=== PATIENT | male | born 1950 | race Caucasian/White ===

== ENCOUNTER → 2017-06-12 | Outpatient (CLI) | payer MEDICARE ==
--- NOTE | 2017-06-12 11:31 | CT ---
EXAMINATION TYPE: CT chest wo con DATE OF EXAM: 06/12/2017 COMPARISON: NONE, abnormal chest x-ray is unavailable at this location. HISTORY: Abn CXR, left lower lobe pneumonia CT DLP: 612.3 mGycm, Automated exposure control for dose reduction was used. CONTRAST: Performed injected with 0 mL of Omnipaque 350. TECHNIQUE: Axial images were obtained at 5 mm thick sections. Reconstructed images are reviewed on t [employer] computer in the coronal plane. FINDINGS: There is beam hardening artifact from a right shoulder prosthesis in the upper portion of t he study. There is herniation of abdominal contents including the stomach and loops of bowel into the posterio r left lung base this may be a morganii hernia. Some minimal infiltrate is along the left lower lobe adjacent to the hernia. Atelectasis or pneumonia could be considered within the left lower lobe. No enlarged mediastinal or hilar adenopathy is evident. The ascending aorta diameter at the level o f the main pulmonary artery is 3.9 cm. The main pulmonary artery diameter at the bifurcation is 3.[address] sections are obtained through the upper abdomen. Abdomen is essentially unremarkable. IMPRESSIONS: 1. Mild infiltrate with air bronchograms in the left lower lobe adjacent to the morganii hernia. Atel ectasis and pneumonia should be considered.
== END | disposition home or self-care (01) ==
LOC: RADCTMAIN 10:55
PROVIDERS: ATTEND Family Medicine
DX: J98.11 Atelectasis (principal); J18.9 Pneumonia, unspecified organism; R91.8 Other nonspecific abnormal finding of lung field; Z88.8 Allergy status to other drugs, medicaments and biological substances
CPT/HCPCS: 71250

== ENCOUNTER → 2017-10-09 | Outpatient (CLI) | payer MEDICARE ==
[2017-10-09 18:47] LABS: Alternaria alternata IgE <0.10 kU/L; Birch IgE <0.10 kU/L; Cat Epith & Dander IgE <0.10 kU/L; Clam IgE <0.10 kU/L; Cockroach IgE <0.10 kU/L; Codfish IgE <0.10 kU/L; Dermato. farinae IgE <0.10 kU/L; Dog Dander IgE <0.10 kU/L; Egg White IgE <0.10 kU/L; Elm IgE <0.10 kU/L; Immunoglobulin E 8.05 IU/mL (0.00-114.00); Immunoglobulin E 8.44 IU/mL (0.00-114.00); Maple (Box Elder) IgE <0.10 kU/L; Oak IgE <0.10 kU/L; Peanut IgE <0.10 kU/L; Ragweed,Common IgE <0.10 kU/L; Red Top (Bentgrass) IgE <0.10 kU/L; Scallop IgE <0.10 kU/L; Shrimp IgE <0.10 kU/L; Soybean IgE <0.10 kU/L; Walnut IgE (Food) <0.10 kU/L
== END ==
LOC: LABWHC1 10:10
PROVIDERS: ATTEND Family Medicine
DX: R05 Cough (principal); R53.83 Other fatigue; R06.02 Shortness of breath
CPT/HCPCS: 36415; 82785; 83880; 85379; 86003

== ENCOUNTER → 2017-10-15 | Outpatient (CLI) | payer MEDICARE ==
[2017-10-15 15:53] LABS: Blood Urea Nitrogen 25 mg/dL (9-20)
--- NOTE | 2017-10-15 16:33 | CT ---
EXAMINATION TYPE: CT chest w con DATE OF EXAM: 10/15/2017 COMPARISON: 06/12/2017 HISTORY: 66-year-old male SOB, fatigue and cough x1 month. TECHNIQUE: Contiguous axial scanning of the chest after the administration of 100ml mL of Isovue M300 . Coronal/sagittal reconstructions performed. CT DLP: 913mGycm. Automatic exposure control utilized for a dose reduction. FINDINGS: Heart normal size without pericardial effusion. Mild coronary vessel calcifications are present. Aorta normal caliber with mild atherosclerotic arch calcifications and conventional arch vessel branc wiliam anatomy. No thoracic lymphadenopathy. There is mass effect onto the posterior aspect of the heart secondary to a very large hernia which oc cupy occupies the left base. This contains the entire stomach, half the transverse colon, and splenic flexure. Persistent opacity with air bronchograms peripheral left base probably representing atelectasis given the left basilar volume loss and large hiatal hernia.. Partially visualized AAA. This measures up to at least 6.6 cm and vascular surgery referral is recomm ended. Bones: There is endplate spondylosis throughout the thoracic spine. Reverse right total shoulder comp elba tear demonstrated. Degenerative disc disease lower thoracic spine. No osseous destructive process . IMPRESSION: 1. Redemonstrated very large hiatal hernia containing the entire stomach, splenic flexure, and half t he transverse colon occupying the lower left hemithorax. There is mass effect onto the posterior aspe ct of the heart. 2. Continued peripheral left basilar opacity. This likely represents atelectasis given the left basil ar volume loss. Clinical correlation can be made for any underlying infectious infiltrate. 3. Partially visualized AAA measuring up to at least 6.6 cm. Vascular surgery referral recommended.
== END | disposition home or self-care (01) ==
LOC: RADCTMAIN 15:21
PROVIDERS: ATTEND Family Medicine
DX: R91.8 Other nonspecific abnormal finding of lung field (principal); R06.02 Shortness of breath
CPT/HCPCS: 82565; 84520; 71260; 36415; Q9967

== ENCOUNTER → 2017-10-28 | Outpatient (CLI) | payer MEDICARE ==
--- NOTE | 2017-10-28 14:35 | ECHOS ---
STRESS ECHOCARDIOGRAM DATE OF SERVICE: 10/28/2017 INDICATIONS: Shortness of breath MEDICATIONS: Losartan, amlodipine, hydralazine. BASELINE HEART RATE: 105 BASELINE BLOOD PRESSURE: 125/60 MAXIMUM HEART RATE: 137 MAXIMUM BLOOD PRESSURE: 177/92 85% MPHR: 129 100% MPHR: 152 METS: 5.4 MAXIMUM STAGE REACHED: 2 TOTAL EXERCISE TIME: 3:45 CLINICAL INFORMATION: Baseline rhythm is sinus mechanism, rate of 105, normal axis and intervals. Normal electrocardiogram. Baseline blood pressure 125/60 mmHg. Patient exercised on Simone protocol for 3 minutes 45 seconds reaching a peak rate of 137 beats per minute, which is equal to 90% maximum predicted heart rate. Peak blood pressure 177/92 mmHg. Test was terminated due to fatigue. There was no chest pain. Electrocardiographic monitoring revealed no evidence of diagnostic ischemic ST deviation. FINDINGS: Baseline echocardiogram revealed normal left ventricular function. At peak exercise, there was normal wall motion augmentation with no hypokinesis or dyskinesis. CONCLUSION: 1. Decreased exercise tolerance with normal electrocardiographic response to exercise and rare premature ventricular contractions. 2. Normal stress echocardiogram with no evidence of stress-induced ischemia. MMODL / IJN: [id number] /
== END | disposition home or self-care (01) ==
LOC: RADNMMAIN 08:58
PROVIDERS: ATTEND Family Medicine
DX: I49.3 Ventricular premature depolarization (principal); K44.9 Diaphragmatic hernia without obstruction or gangrene; R53.83 Other fatigue; Z88.8 Allergy status to other drugs, medicaments and biological substances
CPT/HCPCS: 93351

== ENCOUNTER → 2017-11-12 | Outpatient (CLI) | payer MEDICARE ==
--- NOTE | 2017-11-12 08:13 | CT ---
EXAMINATION TYPE: CT angio abdomen pelvis DATE OF EXAM: 11/12/2017 7:50 AM COMPARISON: NONE HISTORY: Abdominal aortic aneurysm, abn chest CT CT DLP: 1375.9 mGycm Automated exposure control for dose reduction was used. TECHNIQUE: Performed with IV Contrast, patient injected with 100 mL of Isovue 370. 3-D reformats of the vasculature was performed at a separate workstation.. FINDINGS: Within the visualized portions of the chest again there is a large hiatal hernia containing the entir ety of the stomach and portions of the transverse colon and splenic flexure as well as a pronounced a mount of mesenteric fat. This creates chronic atelectasis within the adjacent left lower lobe, right lower lobe and lingula. Left hemithorax volume loss is seen. Again there is mass effect upon the left pulmonary veins and left atrium. The liver is diffusely hypoattenuated in comparison to that of the spleen representing underlying hep atic steatosis most commonly. This limits evaluation for hepatic masses although no hepatic masses se en on today's examination. Gallbladder is unremarkable without cholelithiasis. Within the lateral malik b of the left adrenal gland there is a 2.2 cm nodule that is solid in nature and does not meet criter ia for a benign adenoma. This was not present on the prior exam of 2006. Originating 2.7 cm inferior to the left renal artery there is a fusiform infrarenal abdominal aortic aneurysm with left eccentric but circumferential noncalcific atheromatous plaquing. This measures nicole roximately 7.0 x 6.2 x 7.6 cm in anterior posterior by transverse by craniocaudal dimension and termi nates 2.8 cm above the aortoiliac bifurcation. No aneurysmal dilatation is seen of the common iliac, external iliac or internal iliac arteries. No dissection is identified. There is tortuosity of the ab dominal aorta as it courses left para midline likely due to the levoscoliosis of the lumbar spine. There is mild pancreatic parenchymal atrophy without ductal dilatation. Spleen is unremarkable in enh ancement. The kidneys are also symmetric in enhancement with multiple renal sinus cysts as seen on th e prior exam and a too small to accurately characterize exophytic right posterior lateral cortical 6 mm hypoattenuated lesion. No hydronephrosis. The celiac axis, SMA, and renal arteries appear patent. There are connell renal arteries. JOSE LUIS is al so patent. The bowel is nondilated. No greater than 1 cm short axis lymph node is seen within the abd omen or pelvis. Prostate gland is grossly unremarkable. Osseous structures are intact with moderate d egenerative changes of the lower lumbar spine. IMPRESSION: 1. LARGE INFRARENAL FUSIFORM ABDOMINAL AORTIC ANEURYSM MEASURING UP TO 7.0 X 6.2 X 7.6 CM. AGAIN VASC ULAR SURGICAL CONSULTATION IS RECOMMENDED FOR EVALUATION OF INTERVENTION. 2. NEW INDETERMINATE LEFT ADRENAL GLAND NODULE THAT IS INCOMPLETELY CHARACTERIZED. ENHANCED ABDOMINAL MR WOULD BEST CHARACTERIZE THIS LESION. 3. REDEMONSTRATION OF A LARGE HIATAL HERNIA CONTAINING THE ENTIRETY OF THE STOMACH AND PORTIONS OF TH E COLON.
== END | disposition home or self-care (01) ==
LOC: RADCTMAIN 06:34
PROVIDERS: ATTEND Surgery
DX: I71.4 Abdominal aortic aneurysm, without rupture (principal); K44.9 Diaphragmatic hernia without obstruction or gangrene; E27.8 Other specified disorders of adrenal gland
CPT/HCPCS: 82565; 84520; 36415; 74174; Q9967

== ENCOUNTER → 2017-11-19 | Outpatient (CLI) | payer MEDICARE ==
[2017-11-19 17:03] LABS: Basophils # (A) 0.1 k/uL (0-0.2); Basophils % (A) 1 %; Eosinophils # (A) 0.1 k/uL (0-0.7); Eosinophils % (A) 1 %; HCT 50.7 % (39.0-53.0); HGB 16.9 gm/dL (13.0-17.5); Lymphocytes # (A) 1.4 k/uL (1.0-4.8); Lymphocytes % (A) 22 %; MCHC 33.3 g/dL (31.0-37.0); MCV 87.1 fL (80.0-100.0); Mean Platelet Volume 6.5; Monocytes # (A) 0.6 k/uL (0-1.0); Monocytes % (A) 8 %; Neutrophils # (A) 4.4 k/uL (1.3-7.7); Neutrophils % (A) 66 %; Platelet Count 191 k/uL (150-450); RBC 5.83 m/uL (4.30-5.90); RDW 13.8 % (11.5-15.5); WBC 6.7 k/uL (3.8-10.6)
[2017-11-19 17:04] LABS: Appearance,Urine Clear (Clear); Bilirubin,Urine Negative (Negative); Blood,Urine Negative (Negative); Color,Urine Yellow; Glucose,Urine (UA) Negative (Negative); Ketones,Urine Negative (Negative); Leukocyte Esterase,Urine Negative (Negative); Nitrite,Urine Negative (Negative); Protein,Urine Negative (Negative); Specific Gravity,Urine 1.018 (1.001-1.035); Urobilinogen,Urine <2.0 mg/dL (<2.0)
[2017-11-19 17:27] LABS: Potassium 5.1 mmol/L (3.5-5.1)
== END | disposition home or self-care (01) ==
LOC: LABPAT 16:04
PROVIDERS: ATTEND Surgery
DX: Z01.812 Encounter for preprocedural laboratory examination (principal)
CPT/HCPCS: 36415; 80051; 81003; 85025; 86850; 86900; 86901

== ENCOUNTER 2017-11-26 07:24 | Inpatient (IN) | payer MEDICARE ==
[2017-11-20 15:18] VITALS: BMI 38.0
[~2017-11-26 07:24] MED LIST: HYDROmorphone 0.5 MG/0.5 ML SYRINGE IVP PRN; LIDOCAINE 1% 20 ML VIAL (10MG/ML) FOR IV START INTRADERMA PRN; ONDANSETRON 4 MG/2 ML VIAL IVP ONE; SODIUM CHLORIDE 0.9% 1,000 ML in EMPTY BAG 1 BAG IV ONE
[2017-11-26 08:32] LABS: Basophils % (A) 1 %; Eosinophils # (A) 0.1 k/uL (0-0.7); Eosinophils % (A) 1 %; HCT 46.9 % (39.0-53.0); HGB 16.5 gm/dL (13.0-17.5); Lymphocytes # (A) 0.9 k/uL (1.0-4.8); Lymphocytes % (A) 19 %; MCH 30.4 pg (25.0-35.0); MCHC 35.1 g/dL (31.0-37.0); MCV 86.5 fL (80.0-100.0); Mean Platelet Volume 6.4; Monocytes # (A) 0.4 k/uL (0-1.0); Monocytes % (A) 9 %; Neutrophils # (A) 3.4 k/uL (1.3-7.7); Neutrophils % (A) 68 %; Platelet Count 166 k/uL (150-450); RBC 5.42 m/uL (4.30-5.90); RDW 13.9 % (11.5-15.5); WBC 4.9 k/uL (3.8-10.6)
[2017-11-26 08:46] LABS: Anion Gap 11 mmol/L; Calcium 9.1 mg/dL (8.4-10.2); Carbon Dioxide 23 mmol/L (22-30); Chloride 107 mmol/L (98-107); Glucose 109 mg/dL (74-99); Sodium 141 mmol/L (137-145)
[2017-11-26 08:56] LABS: Blood Urea Nitrogen 24 mg/dL (9-20); Potassium 4.6 mmol/L (3.5-5.1)
[2017-11-26] MEDS ORDERED: MIDAZOLAM 2 MG/2 ML VIAL ONE (09:10)
[2017-11-26] MEDS ORDERED: GLYCOPYRROLATE 0.2 MG/ML 2 ML VIAL ONE (09:10)
[2017-11-26] MEDS ORDERED: SUCCINYLCHOLINE CHLORIDE 100 MG/5 ML SYR IV ONE (09:10)
[2017-11-26] MEDS ORDERED: ROCURONIUM BROMIDE 10 MG/ML 10 ML VIAL IV ONE (09:10)
[2017-11-26] MEDS ORDERED: PHENYLEPHRINE-0.9% NACL SYG 1 MG/10 ML SYRINGE ONE (09:10)
[2017-11-26] MEDS ORDERED: PROPOFOL 10 MG/ML 20 ML VIAL IV ONE (09:10)
[2017-11-26] MEDS ORDERED: HEPARIN SODIUM,PORCINE 10,000 UNIT/ML 1 ML VIAL ONE (09:10)
[2017-11-26] MEDS ORDERED: fentaNYL (PF) 50 MCG/ML 2 ML AMP ONE (09:10)
[2017-11-26] MEDS ORDERED: PROTAMINE SULFATE 10 MG/ML 5 ML VIAL IV ONE (09:10)
[2017-11-26] MEDS ORDERED: NEOSTIGMINE 1 MG/ML 10 ML VIAL ONE (09:10)
[2017-11-26] MEDS ORDERED: LIDOCAINE 1% INJ 10MG/ML (20 ML MDV) ONE (09:10)
[2017-11-26] MEDS ORDERED: ePHEDrine SULFATE/0.9% NACL/PF 50 MG/5 ML SYRINGE IV ONE (09:10)
[2017-11-26] MEDS ORDERED: SODIUM CHLORIDE 0.9% 500 ML IV ONE (09:20)
[2017-11-26] MEDS ORDERED: LIDOCAINE 1% INJ 10MG/ML (20 ML MDV) SQ ONE (09:35)
[2017-11-26] MEDS ORDERED: IOPAMIDOL-250 100ML BTL INTRAARTER ONE ×2 (10:45→11:00)
[2017-11-26] MEDS ORDERED: LACTATED RINGERS 1,000 ML IV ONE (11:12)
--- NOTE | 2017-11-26 11:26 | P.OP ---
Date of Procedure: 11/26/17 Preoperative Diagnosis: Abdominal aortic aneurysm measuring 7.6 cm Postoperative Diagnosis: Same Procedure(s) Performed: Endovascular aortic repair with ovation IX device with ultrasound-guided bilateral femoral artery access Implants: Ovation IX device Anesthesia: OBEYA Surgeon: Jeremiah Martin Estimated Blood Loss (ml): 25 IV fluids (ml): 1,700 Urine output (ml): 325 Pathology: none sent Condition: stable Disposition: PACU Indications for Procedure: Is a 67-year-old gentleman who originally presented to the office after a CT thorax demonstrated and infrarenal abdominal aortic aneurysm measuring approximately 7.6 cm. Patient then underwent a CTA of the abdomen and pelvis which demonstrated the same aneurysm that was amenable to endovascular repair. Patient presents today for endovascular repair. Description of Procedure: After written informed consent was obtained the patient all risks benefits competitions were described patient is brought to the [facility] laid in a supine position. The area of the abdomen and groins were prepped and draped in usual sterile fashion after appropriate anesthetic was performed per the anesthesiologist. A timeout was performed in normal fashion antibiotics were administered prior to incisions. Utilizing ultrasound bilateral common femoral arteries were visualized and shown to be patent without significant atherosclerotic disease. Under ultrasound guidance the artery was cannulated and 2 Perclose devices were deployed in normal fashion in each artery. Once completed 8-Pashto sheaths were placed in normal fashion and patient was administered heparin was serial A CTs for appropriate heparinization. 035 Glidewire was then placed into the descending thoracic aorta followed by a angled glide catheter and the wire was exchanged for a stiff Lunderquist wire on the left groin. Pigtail catheter was then placed at the right femoral sheath at approximately the L1, L2 level. A 23 mm ovation IX aortic body graft was then loaded over the Lunderquist wire after removal of the 8-Pashto sheath. Aortogram was then obtained demonstrating takeoffs of the renal arteries which were marked. The ovation main body was then deployed in normal fashion just inferior to the right renal artery. The polymer was then mixed and placed under direct visualization of fluoroscopy after Lunderquist wire was pulled back into the main body of the graft. Pigtail catheter was also withdrawn prior to polymer injection. Pigtail catheter was then removed and a angled glide catheter was placed for contralateral limb cannulation. Contralateral limb was then cannulated. Pigtail catheter was then placed in the main body over the 035 Glidewire and spun to ensure were within the graft. An Amplatz wire was then placed through the pigtail catheter and utilizing the pigtail catheter markings a retrograde angiogram was performed to huy the internal iliac artery. A 14 x 140 mm limb was then chosen to be deployed. Pigtail catheter was then removed along with the 8-Pashto sheath on the right femoral area and the deployment sheath for the 14 x 140 mm limb graft was placed in normal fashion. Once completed the deployed the sheath was then placed within the limb. After 14 minutes was allowed to pass the main body was fully deployed and the nosecone was withdrawn under direct visualization of fluoroscopy. Coda balloon was then placed over the Lunderquist wire after the main body device was fully deployed. Balloon angioplasty was performed at the [facility]. Coda balloon was then removed followed by pigtail catheter and measurements after retrograde angiogram was obtained of the left internal iliac artery. A 16 x 160 mm limb was then chosen and placed over the Lunderquist wire after removal of the previous sheath. This was deployed in normal fashion just superior to the internal iliac artery. Once deployed to 10 x 40 mm balloons were placed up each sheath and kissing angioplasties was performed throughout the entirety of the limbs. Once completed the balloons were removed and a pigtail catheter was placed and final angiogram was obtained which demonstrated no evidence of a type I, II or 3 endoleak. All sheaths and catheters were removed and Perclose closure devices were secured in normal fashion for hemostasis. Hemostasis was assured. The area was then cleansed and dressings were placed. The patient tolerated the procedure well and was sent to PACU for recovery.
[2017-11-26 12:06] LABS: Basophils % (A) 0 %; Eosinophils # (A) 0.1 k/uL (0-0.7); Eosinophils % (A) 1 %; HCT 43.9 % (39.0-53.0); HGB 14.7 gm/dL (13.0-17.5); Lymphocytes % (A) 13 %; MCHC 33.5 g/dL (31.0-37.0); MCV 86.5 fL (80.0-100.0); Mean Platelet Volume 6.7; Monocytes # (A) 0.5 k/uL (0-1.0); Monocytes % (A) 7 %; Neutrophils # (A) 5.9 k/uL (1.3-7.7); Neutrophils % (A) 77 %; Platelet Count 152 k/uL (150-450); RBC 5.07 m/uL (4.30-5.90); RDW 13.9 % (11.5-15.5); WBC 7.7 k/uL (3.8-10.6)
--- NOTE | 2017-11-26 12:06 | IR ---
EXAMINATION TYPE: IR well logging captain aorta DATE OF EXAM: 11/26/2017 HISTORY: Aortic aneurysm Fluoroscopy support supplied to the referring clinician. See dictated report from vascular surgery, 18.4 minutes fluoroscopy time, 123 intraoperative images
[2017-11-26 12:15] LABS: Anion Gap 8 mmol/L; Blood Urea Nitrogen 22 mg/dL (9-20); Calcium 8.1 mg/dL (8.4-10.2); Carbon Dioxide 23 mmol/L (22-30); Chloride 109 mmol/L (98-107); Glucose 130 mg/dL (74-99); Sodium 140 mmol/L (137-145)
[2017-11-26 12:38] LABS: Glucose,Whole Blood 126 mg/dL (75-99)
[2017-11-26] MEDS: LACTATED RINGERS 1,000 ML IV SCH (15:23)
[2017-11-26] MEDS: HYDROcodone/APAP 5-325MG 1 EACH TAB PO PRN ×2 (16:07→19:47)
[2017-11-26] MEDS: hydrALAZINE HCL 50 MG TAB PO SCH ×2 (16:10→22:54)
[2017-11-26] MEDS: SODIUM CHLORIDE 0.9% 1,000 ML IV SCH (17:31)
[2017-11-26] MEDS ORDERED: NALOXONE 0.4 MG/ML 1 ML VIAL IV PRN (17:33)
[2017-11-26] MEDS ORDERED: BENZOCAINE/MENTHOL LOZENG 1 EACH LOZENGE MUCOUS MEM PRN (19:23)
[2017-11-27] MEDS: SODIUM CHLORIDE 0.9% 1,000 ML IV SCH
[2017-11-27 06:12] LABS: Basophils % (A) 0 %; Eosinophils # (A) 0.1 k/uL (0-0.7); Eosinophils % (A) 1 %; HCT 43.1 % (39.0-53.0); HGB 14.7 gm/dL (13.0-17.5); Lymphocytes # (A) 1.1 k/uL (1.0-4.8); Lymphocytes % (A) 12 %; MCH 30.2 pg (25.0-35.0); MCHC 34.2 g/dL (31.0-37.0); MCV 88.5 fL (80.0-100.0); Mean Platelet Volume 6.5; Monocytes # (A) 0.8 k/uL (0-1.0); Monocytes % (A) 9 %; Neutrophils # (A) 6.5 k/uL (1.3-7.7); Neutrophils % (A) 75 %; Platelet Count 157 k/uL (150-450); RBC 4.87 m/uL (4.30-5.90); RDW 14.3 % (11.5-15.5); WBC 8.6 k/uL (3.8-10.6)
[2017-11-27 06:19] LABS: Anion Gap 11 mmol/L; Blood Urea Nitrogen 18 mg/dL (9-20); Calcium 8.1 mg/dL (8.4-10.2); Carbon Dioxide 23 mmol/L (22-30); Chloride 107 mmol/L (98-107); Glucose 115 mg/dL (74-99); Phosphorus 2.9 mg/dL (2.5-4.5); Potassium 3.8 mmol/L (3.5-5.1); Sodium 141 mmol/L (137-145)
[2017-11-27] MEDS: LACTATED RINGERS 1,000 ML IV SCH (07:09)
[2017-11-27] MEDS: hydrALAZINE HCL 50 MG TAB PO SCH (08:02)
[2017-11-27 08:10] VITALS: TEMP 98.3
[2017-11-27] MEDS ORDERED: amLODIPine 10 MG TAB PO SCH (09:00)
[2017-11-27] MEDS ORDERED: ASPIRIN 81 MG PO SCH (09:00)
[2017-11-27] MEDS ORDERED: CLOPIDOGREL 75 MG TAB PO SCH (09:00)
[2017-11-27] MEDS ORDERED: LOSARTAN 50 MG TAB PO SCH (09:00)
--- NOTE | 2017-11-27 09:37 | P.PN ---
Progress Note - Text Progress Note Date: 11/27/17 Subjective: Patient has no complaints today. No significant pain. Up and about and urinating without difficulty. Objective: Groins have minimal drainage and no swelling. Abdomen benign. Vital signs stable. Assessment: Good recovery post aortic stent graft. Plan: Discharge instructions reviewed with the patient in detail. He will follow up with Dr. Martin in 2 weeks.
[2017-11-27 10:05] VITALS: BP 146/77; PULSE 81; RESP 20
--- NOTE | 2017-11-27 18:40 | PN ---
PROGRESS NOTE DATE OF SERVICE: 11/27/2017 CHIEF COMPLAINT: Status post aortic aneurysm repair. HISTORY OF PRESENT ILLNESS: This gentleman is doing well. He is going home. PHYSICAL EXAM: Unchanged and normal. IMPRESSION: Abdominal aortic aneurysm. PLAN: He will probably go home today. We will see him in the office soon. MMODL / IJN: [id number] /
--- NOTE | 2017-11-27 19:55 | CONS ---
CONSULTATION DATE OF CONSULTATION: 11/26/2017 CHIEF COMPLAINT: Abdominal aortic aneurysm. HISTORY OF PRESENT ILLNESS: This gentleman is admitted for an elective endovascular repair of abdominal aortic aneurysm. REVIEW OF SYSTEMS: He is doing well without any back pain, stomach pain, lower extremity symptoms, etc. He has a history of hypertension. He has had no headaches, chest pain, shortness of breath, etc. Past medical history, family history and personal and social histories are all to be found in his history and physical. PHYSICAL EXAM: Blood pressure 142/88 with a pulse of 79, respirations of 20 and he is afebrile. In general, he appeared to be well developed, well nourished, no acute distress. Skin color is normal. Skin is warm, dry. Lymph nodes not enlarged. Head, ears, eyes, nose, mouth, and throat were normal. Neck veins are not distended. Thyroid is not enlarged. Chest is clear. Cardiac exam is normal. Abdomen is soft, nontender. Slightly protuberant. Extremities are normal. Pulses are good. Neurologically intact. IMPRESSION: 1. Abdominal aortic aneurysm. 2. History of hypertension. PLAN: No change in program. MMODL / IJN: [id number] /
== END 2017-11-27 10:55 | disposition home or self-care (01) | DRG 269 ==
LOC: 2ORMAIN 07:24 → 6ICU 11:12
PROVIDERS: ADMIT Surgery; ATTEND Surgery
PROC: 04V03DZ Restriction of Abdominal Aorta with Intraluminal Device, Percutaneous Approach (ICD-10-PCS; principal; 2017-11-26 09:10)
DX: I71.4 Abdominal aortic aneurysm, without rupture (principal); I10 Essential (primary) hypertension; F41.9 Anxiety disorder, unspecified; J44.9 Chronic obstructive pulmonary disease, unspecified; K21.9 Gastro-esophageal reflux disease without esophagitis; M10.9 Gout, unspecified; K44.9 Diaphragmatic hernia without obstruction or gangrene; E78.5 Hyperlipidemia, unspecified; M19.90 Unspecified osteoarthritis, unspecified site; E66.9 Obesity, unspecified; Z68.28 Body mass index [BMI] 28.0-28.9, adult; Z79.52 Long term (current) use of systemic steroids; Z79.899 Other long term (current) drug therapy
CPT/HCPCS: 34705; 80048; 83735; 84100; 85025; 85347; 86850; 86900; 86901

== ENCOUNTER → 2018-01-07 | Outpatient (CLI) | payer MEDICARE ==
[2018-01-07 10:34] LABS: Blood Urea Nitrogen 21 mg/dL (9-20)
--- NOTE | 2018-01-07 11:44 | CT ---
EXAMINATION TYPE: CT angio abdomen pelvis DATE OF EXAM: 01/07/2018 COMPARISON: Prior CTA 07/15/2017. HISTORY: New stent graft in AAA CT DLP: 2748 mGycm, Automated Exposure Control for Dose Reduction was Utilized. CONTRAST: CTA scan of the abdomen and pelvis is performed without oral and without and with IV Contrast, patien t injected with 100 mL of Isovue 370. Aneurysm protocol with Three-D reconstructed images created on a independent workstation and reviewed. FINDINGS: VASCULAR: There is redemonstration of eccentric infrarenal abdominal aortic aneurysm is roughly 6-7 c m in length coronal image 88 and sagittal image 123. [place] aneurysm measures 7.1 cm AP by 6.2 cm tra nsverse axial image 28 not significantly changed in size from prior. There is new metallic stent yanelis t beginning above the aneurysm axial image 10 at level of celiac axis with nonmetallic graft componen t at proximal aneurysm and subsequent bifurcation into metallic stent graft is 3 aneurysm into the bi lateral common iliac arteries. Post contrast images show satisfactory enhancement of the celiac acces s, SMA, and bilateral single renal arteries as well as stent graft into common iliac arteries. There is no suspicious extraluminal enhancement within the [place] aneurysm sac. Significant noncalcified pl aque right internal iliac artery axial image 58 is not significantly changed from prior study. Stenos is just over 50% is felt present. LUNG BASES: There is redemonstration of large hernia posterior to the heart containing majority of ma lrotated stomach and portions of colon. LIVER/GB: No significant abnormality is appreciated. PANCREAS: No significant abnormality is seen. SPLEEN: No significant abnormality is seen. ADRENALS: Slight asymmetric thickening anterior limb of left adrenal gland is presumed benign seen be st axial image 16 series 18. KIDNEYS: There is 2.8 x 2.1 cm simple appearing cyst posteriorly mid pole level left kidney series 18 image 22. There are additional smaller simple appearing parapelvic cysts centrally in both kidneys. BOWEL: No significant abnormality is seen. PROSTATE/SEMINAL VESICLES: No gross abnormality seen. LYMPH NODES: No greater than 1cm abdominal or pelvic lymph nodes are appreciated. OSSEOUS STRUCTURES: Underlying levoconvex scoliosis is redemonstrated. There is moderate to advanced multilevel spurring and disc space narrowing most prominent L2-L3 level throughout the thoracolumbar spine. OTHER: No significant additional abnormality is seen. IMPRESSION: Interval successful placement of stent graft over large infrarenal abdominal aortic aneur ysm. No suspicious enhancement to suggest endoleak.
== END | disposition home or self-care (01) ==
LOC: RADCTMAIN 09:45
PROVIDERS: ATTEND Surgery
DX: I71.4 Abdominal aortic aneurysm, without rupture (principal); Z98.890 Other specified postprocedural states
CPT/HCPCS: 82565; 84520; 36415; 74174; Q9967

== ENCOUNTER → 2019-05-28 | Outpatient (CLI) | payer MEDICARE | END | disposition home or self-care (01) | LOC: LABPAT 10:10 | PROVIDERS: ATTEND Orthopaedic Surgery | DX: Z01.812 Encounter for preprocedural laboratory examination (principal) | CPT/HCPCS: 87070 ==

== ENCOUNTER 2019-06-22 13:19 | Day surgery (SDC) | payer MEDICARE ==
[2019-06-15 12:49] VITALS: BMI 36.6
[~2019-06-22 13:19] MED LIST changes: +DEXAMETHASONE SOD PHOSPHATE 10 MG/ML 1 ML VIAL IV ONE; -LIDOCAINE 1% 20 ML VIAL (10MG/ML) FOR IV START INTRADERMA PRN; +MIDAZOLAM 2 MG/2 ML VIAL IV PRN; -SODIUM CHLORIDE 0.9% 1,000 ML in EMPTY BAG 1 BAG IV ONE
[2019-06-22] MEDS ORDERED: LIDOCAINE 1% (10MG/ML) FOR IV START INTRADERMA ONE (13:55)
[2019-06-22] MEDS: LACTATED RINGERS 1,000 ML IV SCH ×2 (13:55→22:21)
[2019-06-22] MEDS ORDERED: ACETAMINOPHEN TAB 500 MG TAB PO ONE (14:16)
[2019-06-22] MEDS ORDERED: MELOXICAM 7.5 MG TAB PO ONE (14:16)
[2019-06-22] MEDS ORDERED: TRANEXAMIC ACID 1,000 MG/10 ML VIAL IRRIGATION ONE (14:17)
[2019-06-22] MEDS ORDERED: TRANEXAMIC ACID 1,000 MG in SODIUM CHLORIDE 0.9% 100 ML IVPB ONE ×2 (14:17→15:00)
[2019-06-22] MEDS ORDERED: ROPIVACAINE 0.2%-NS ON-Q PUMP 1,090 MG, EMPTY PAIN BALL 1 EACH MISCELLANE PRN (15:01)
--- NOTE | 2019-06-22 15:02 | P.ANPRN ---
Procedure Note - Anesthesia - Nerve Block Performed Left Adductor Canal Infusion Time Out Performed: Yes Date of Procedure: 06/22/19 Procedure Start Time: 14:28 Procedure Stop Time: 14:43 Location of Patient: PreOp Indication: Acute Post-Operative Pain, Requested by Surgeon Sedation Type: Sedate with meaningful contact maintained Preparation: Sterile Prep, Sterile Dressing Position: Supine Catheter: Indwelling Needle Types: Pajunk Needle Gauge: 18 Ultrasound used to visualize needle placement: Yes Ultrasound used to observe medication spread: Yes Injectate: 0.5% Ropivacaine (see comment for volume) (20 ml) Blood Aspirated: No Pain Paresthesia on Injection Noted: No Resistance on Injection: Normal Image Stored and Saved: Yes Events: Uneventful and Well Tolerated
[2019-06-22] MEDS ORDERED: TRANEXAMIC ACID 1,000 MG/10 ML VIAL ONE (15:20)
[2019-06-22] MEDS ORDERED: SODIUM CHLORIDE 0.9% 100 ML BAG ONE (15:20)
[2019-06-22] MEDS ORDERED: MIDAZOLAM 2 MG/2 ML VIAL ONE (15:20)
[2019-06-22] MEDS ORDERED: PROPOFOL 10 MG/ML 20 ML VIAL IV ONE (15:20)
[2019-06-22] MEDS ORDERED: METOPROLOL TARTRATE 5 MG/5 ML VIAL IVP ONE (15:20)
[2019-06-22] MEDS ORDERED: fentaNYL (PF) 50 MCG/ML 2 ML AMP ONE (15:20)
[2019-06-22] MEDS ORDERED: HYDROmorphone 0.5 MG/0.5 ML SYRINGE IVP PRN ×3 (15:29)
[2019-06-22] MEDS ORDERED: NALOXONE 0.4 MG/ML 1 ML VIAL IV PRN (15:29)
[2019-06-22] MEDS ORDERED: HYDROcodone/APAP 7.5-325MG 1 EACH TAB PO PRN (15:29)
[2019-06-22] MEDS ORDERED: MAGNESIUM HYDROXIDE 2,400 MG/10 ML CUP PO PRN (15:29)
[2019-06-22] MEDS ORDERED: BISACODYL 10 MG SUPP RECTAL PRN (15:29)
[2019-06-22] MEDS ORDERED: NA PHOS,M-B/NA PHOS,DI-BA 133 ML ENEMA RECTAL PRN (15:29)
[2019-06-22] MEDS ORDERED: ROPIVACAINE 246.25 MG, EPINEPHrine 0.5 MG, KETOROLAC 30 MG, cloNIDine HCL/PF 80 MCG, WA... MISCELLANE ONE ×5 (15:54)
[2019-06-22] MEDS ORDERED: LACTATED RINGERS 1,000 ML IV ONE ×2 (17:30)
--- NOTE | 2019-06-22 17:35 | P.OP ---
Date of Procedure: 06/22/19 Procedure(s) Performed: PREOPERATIVE DIAGNOSIS: Left knee severe osteoarthritis with genu varum POSTOPERATIVE DIAGNOSIS: Left knee severe osteoarthritis with genu varum OPERATION: Left knee cemented total replacement arthroplasty. ANESTHESIA: Spinal ESTIMATED BLOOD LOSS: 125 ml. SOLUTIONS MARKET CONSULTANT: Caitlin Gomez NP (assistance with: patient positioning, retraction, exposure, hemostasis, leg positioning, implantation, irrigation, closure, dressing) COMPLICATIONS: None apparent. COMPONENTS IMPLANTED: Journey II total knee system from [employer] INDICATIONS: Mr. Leahy is a 68-year-old male with a history of left knee osteoarthritis. The patient's knee is end-stage, and conservative management has failed. The operation of knee replacement has been discussed at length in the office, as well as potential risks and complications. These are inclusive of, but not limited to: bleeding, infection, scarring, discomfort, blood vessel and nerve damage, need for further surgery, failure to relieve symptoms, persistence, recurrence, or worsening of problems, loosening, dislocation, wear, blood clot, pulmonary embolism, , gait dysfunction, stiffness, and other risks as discussed in the office. The patient elects to proceed and the consent form has been signed. PROCEDURE: The patient was taken to the operating room and positioned on the operating room table in the supine position. Anesthesia was initiated. Care was taken to make sure that all pressure points were adequately padded. The operative lower extremity was prepped and draped in the usual aseptic fashion using ChloraPrep. Ioban drape was used for the case and the patient received intravenous antibiotics within one hour of the incision. A pneumotourniquet and leg blount were used for the case. The limb was exsanguinated with an Esmarch bandage and the tourniquet was inflated to 350 mmHg. Time-out was called confirming the patient's identity, side, procedure and administration of antibiotics and tranexamic acid. The incision was then created midline directly over the left knee, carried down through skin and into the subcutaneous tissues and down to fascia. Full thickness subcutaneous medial flap was developed. Medial parapatellar arthrotomy was performed and the interior of the knee was inspected. There was end-stage osteoarthritis of the knee with a mild to moderate genu varum type deformity. The fat pad was excised and proximal medial release on the tibia was completed using meticulous dissection and a curved osteotome. The anterior cruciate ligament was taken down. Note was made of significant attrition of the anterior and significant degenerative appearance of the cruciate ligaments. The exposure was excellent. The knee was flexed 90 degrees and the patella was everted. A spot was chosen on the femur approximately 1 cm anterior to the posterior cruciate ligament insertion and an intramedullary hole was created within the femur. The intramedullary guide was set to 5 degrees of valgus. The distal cutting block was attached and pinned into position. An appropriate amount of distal femoral resection was set. The oscillating saw was then used to make the distal femoral cut. This cut was confirmed to be flat with the flat end of an osteotome. The retractors were placed around the tibia and the tibial surface was addressed. The angle and depth of resection was adjusted using an extramedullary cutting guide. The guide had a built-in 3 degree posterior slope cut. Once the cutting guide was adjusted appropriately and in line with the axis of the tibia and confirmed to be in good position in relation to the second metatarsal and transmalleolar axis, the tibial cut was then created with protection of the posterior neurovascular structures and the collateral ligaments. The tibial cut surface was removed and sized. Femoral sizing was then accomplished using posterior referencing. Care was taken to analyze the posterior condyles for signs of deficiency or severe wear, and adjustments to the guide were made, as appropriate. 3 degree external rotation pins were placed. The cutting jig for the femur was applied to these pins. The planned cuts were further analyzed prior to performing them with the oscillating saw. No femoral notching was produced. Bone fragments were removed and the cut surfaces were finished, as necessary, with a reciprocating saw. Spacer block technique was then used to confirm that the flexion and extension gaps were equal. Soft tissue releases and adjustment of the tibial and/or femoral cuts were made, as necessary, until the gaps were equal. This included release of the posterior cruciate ligament, which was excessively tight in this patient. The femur was then further finished for a posterior cruciate ligament substituting component. Patellar resurfacing was performed using a reamer. The size of the required patellar component was estimated and the patellar surface was then reamed down to a residual thickness which would recreate the [place] thickness with the component. The exact placement of the patellar component was adjusted for position based on preoperative x-rays and intraoperative findings. Prior to placing trial components, anesthetic solution consisting of ropivicaine with epinephrine, ketorolac, and clonidine was injected carefully and methodically in a grid pattern using aspiration technique into the soft tissue around the knee circumferentially, starting with the deeper tissues first and progressing to fascia, and then finally the skin/subcutaneous tissue. Particular care was taken when injecting the posterior capsule. The trial components were inserted. The tibial tray was allowed to self center and the patella was noted to track very well. The position of the tibial component was marked and the tibia was then finished for a stemmed tibial component. Cement was mixed on the back table and applied to the final components. Trial components were removed and the cut surfaces of the bone were pulse lavaged thoroughly and dried. Cement was then applied to the tibial surface and pressurized into the surface using finger pressurization technique. The tibial component was then applied and excess cement was removed after it was impacted securely and noted to be flush with the cut surface. In similar fashion, the cement was applied to the cut femoral surface, pressurized in using finger pressurization and the component was impacted into place. Excess cement was removed. The polyethylene spacer was then implanted and locked into position. The patellar component was then applied in similar technique and a patellar clamp was used to hold the patella in place as the cement hardened. Once the cement had fully hardened, the knee was reinspected. Any other cement extrusion was removed and final kinematic testing showed range of motion from 0 to 130 degrees with excellent stability, both medially and laterally and appropriate alignment of the leg. Patellar tracking was excellent. The knee was then thoroughly pulse lavaged with normal saline. The tourniquet was deflated and hemostasis was obtained with electrocautery and IV tranexamic acid, 1 g given at the start of the operation and 1 g at the start of closure. Closure was with #2 Ethibond in the fascia/capsule and supplemented with #2 Quill, 2-0 Vicryl suture was used for the subcutaneous tissues and 3-0 Quill for the skin. Dermabond/Steri-Strips were then applied. A lightly compressive dressing was applied using Webril and an Finesse wrap. [facility] and [facility] room in stable condition. Sponge and needle counts were correct.
--- NOTE | 2019-06-22 18:22 | XR ---
Left knee HISTORY: Status post left knee arthroplasty 2 views of the left knee Patient is status post left knee arthroplasty. There is anatomic alignment. Lucency in the soft tissu es is consistent with postop state. IMPRESSION: Orthopedic follow-up.
[2019-06-22] MEDS ORDERED: SENNOSIDES-DOCUSATE SODIUM 1 EACH TAB PO SCH (21:00)
[2019-06-22] MEDS: HYDROcodone/APAP 5-325MG 1 EACH TAB PO PRN (22:49)
--- NOTE | 2019-06-23 07:47 | P.PN ---
Progress Note - Text Progress Note Date: 06/23/19 Pt without complaints. Pain 06/05. OOB. Left adductor canal catheter site clean and dry. A/P POD#1 s/p L TKA with L adductor block - doing well - continue multimodal analgesia
[2019-06-23 07:53] VITALS: PULSE 84; TEMP 98
[2019-06-23 08:04] LABS: Basophils % (A) 0 %; Eosinophils % (A) 0 %; HCT 42.1 % (39.0-53.0); Lymphocytes # (A) 0.8 k/uL (1.0-4.8); Lymphocytes % (A) 8 %; MCH 28.7 pg (25.0-35.0); MCHC 32.3 g/dL (31.0-37.0); Mean Platelet Volume 7.4; Monocytes # (A) 0.8 k/uL (0-1.0); Monocytes % (A) 8 %; Neutrophils # (A) 8.7 k/uL (1.3-7.7); Neutrophils % (A) 82 %; Platelet Count 141 k/uL (150-450); RBC 4.73 m/uL (4.30-5.90); RDW 13.4 % (11.5-15.5); WBC 10.6 k/uL (3.8-10.6)
[2019-06-23 08:06] LABS: HGB 13.6 gm/dL (13.0-17.5)
[2019-06-23] MEDS ORDERED: MELOXICAM 7.5 MG TAB PO SCH (09:00)
[2019-06-23] MEDS: LACTATED RINGERS 1,000 ML IV SCH ×3 (09:39→13:20)
[2019-06-23] MEDS: HYDROcodone/APAP 5-325MG 1 EACH TAB PO PRN (10:17)
--- NOTE | 2019-06-23 11:01 | P.DS ---
Providers Expected date of discharge: 06/23/19 Attending physician: Mg Almeida Primary care physician: Martir Menendez - Discharge Diagnosis(es) (1) Primary osteoarthritis of left knee Current Visit: Yes Status: Acute (2) Status post total left knee replacement Current Visit: Yes Status: Acute Hospital Course: This is a 68-year-old male who was last seen with complaint of continued left knee pain. The patient has a known history of degenerative arthritis of the left knee and presents to discuss surgical options. After discussion and consideration the patient elects to proceed with total left knee arthroplasty. The patient is seen preoperatively by Dr. Menendez and cleared for surgery. The patient is admitted to [facility] for total left knee arthroplasty. The procedures performed without complication or sequelae. He is doing well postoperatively. Vital signs are stable at discharge. Labs are stable at discharge. the patient is ambulating well with walker with minimal assistance. The patient is discharged to home on postop day #1 pending medical clearance. Please see orders and refer to the med rec for accurate list of medications. Plan - Discharge Summary Discharge Rx Participant: Yes New Discharge Prescriptions: New Aspirin 325 mg PO BID #1 tab Meloxicam [Mobic] 1 - 2 tab PO DAILY PRN #30 tab PRN Reason: Pain HYDROcodone/APAP 7.5-325MG [Alexander 7.5-325] 1 - 2 tab PO Q4-6H PRN #50 tab PRN Reason: Pain Sennosides-Docusate Sodium [Senokot-S] 1 tab PO BID #60 tablet No Action amLODIPine BESYLATE [Norvasc] 10 mg PO QAM hydrALAZINE HCL [Apresoline] 100 mg PO TID Furosemide [Lasix] 20 mg PO QAM Atorvastatin [Lipitor] 40 mg PO DAILY Vitamin D 1 dose PO Q30D Minoxidil 2.5 mg PO QAM Aspirin [Adult Low Dose Aspirin EC] 81 mg PO DAILY Discharge Medication List amLODIPine BESYLATE [Norvasc] 10 mg PO QAM 11/20/17 [History] hydrALAZINE HCL [Apresoline] 100 mg PO TID 11/20/17 [History] Aspirin [Adult Low Dose Aspirin EC] 81 mg PO DAILY 06/15/19 [History] Atorvastatin [Lipitor] 40 mg PO DAILY 06/15/19 [History] Furosemide [Lasix] 20 mg PO QAM 06/15/19 [History] Minoxidil 2.5 mg PO QAM 06/15/19 [History] Vitamin D 1 dose PO Q30D 06/15/19 [History] Aspirin 325 mg PO BID #1 tab 06/23/19 [Rx] HYDROcodone/APAP 7.5-325MG [Alexander 7.5-325] 1 - 2 tab PO Q4-6H PRN #50 tab 06/23/19 [Rx] Meloxicam [Mobic] 1 - 2 tab PO DAILY PRN #30 tab 06/23/19 [Rx] Sennosides-Docusate Sodium [Senokot-S] 1 tab PO BID #60 tablet 06/23/19 [Rx] Follow up Appointment(s)/Referral(s): Rani Crespo PAC [[employer]] - 07/08/19 2:15 pm Activity/Diet/Wound Care/Special Instructions: A bear weight as tolerated with walker. May shower if no drainage from incision starting on 06/24/2019. Discharge Disposition: HOME WITH HOME HEALTH SERVICES
[2019-06-23 12:49] VITALS: BP 135/84; RESP 16
[2019-06-23] MEDS ORDERED: hydrALAZINE HCL 50 MG TAB PO SCH (16:00)
--- NOTE | 2019-06-23 22:18 | PN ---
PROGRESS NOTE DATE OF SERVICE: 06/23/2019. CHIEF COMPLAINT: Status post left knee replacement. HISTORY OF PRESENT ILLNESS: This gentleman is doing well. He has had a little trouble with urinary retention during the night. He has had no shortness of breath, palpitations, chest pain, abdominal pain, fever, chills, nausea, vomiting, etc. PHYSICAL EXAM: Head ears, eyes, nose, mouth, and throat were normal. Neck veins are not distended. Chest is clear. Cardiac exam is normal. Abdomen is soft, nontender. Left knee is dressed. Vital signs are normal. IMPRESSION: 1. Status post left total knee. 2. Urinary retention probably related more to his spinal than anything else. 3. Hypertension. 4. Type 2 noninsulin dependent diabetes mellitus. PLAN: He will probably home today if he voids without any difficulty and will follow in the office in several days. DIAGNOSIS: Left knee replacement. PLAN: Home later and recheck in a week or so. MMODL / IJN: [id number] /
--- NOTE | 2019-06-24 06:21 | CONS ---
CONSULTATION CHIEF COMPLAINT: Osteoarthritis of the left knee. HISTORY OF PRESENT ILLNESS: This gentleman is coming into the hospital for an elective left total knee. He has had other problems including diet-controlled type 2 NIDDM, hypertension, and he has struggled with obesity. He has been doing well lately and has come in for this procedure. REVIEW OF SYSTEMS: He has had no headaches, neurologic problems, change in vision or the hearing, shortness of breath, cough, hemoptysis, angina, infarctions, murmurs, rheumatic fever, orthopnea, PND, lung disease, abdominal pain, nausea, vomiting, indigestion, diarrhea, melena, hematochezia, diverticulitis, diverticulosis, hemorrhoids, jaundice, hepatitis, renal failure, dysuria, hematuria, frequency, urgency, etc. Past medical history, family history and personal and social histories are unremarkable and noncontributory otherwise and can be found in his admitting summary. PHYSICAL EXAMINATION: Blood pressure is 142/85 with a pulse of 78, respirations of 15 and he is afebrile. In general, he appeared to be overweight and in no acute distress. Skin color is normal. Skin is warm, dry. Lymph nodes not enlarged. Head, ears, eyes, nose, mouth, and throat were normal. Neck veins not distended. Thyroid is not enlarged. Chest is clear. Cardiac exam is normal. No murmurs or extra sounds. Abdomen is soft, nontender. It is protuberant. There are no masses or visceromegaly. Bowel sounds present. Extremities are normal except for the left knee. Neurologically, he is intact. He admitted to the hospital with the diagnoses: 1. Osteoarthritis of the left knee. 2. Hypertension. 3. Type 2 [id number] diabetes mellitus. RECOMMENDATIONS: None. MMODL / IJN: [id number] /
[2019-06-24] MEDS ORDERED: ASPIRIN 81 MG PO SCH (09:00)
[2019-06-24] MEDS ORDERED: MINOXIDIL 2.5 MG TAB PO SCH (09:00)
[2019-06-24] MEDS ORDERED: ATORVASTATIN 40 MG TAB PO SCH (09:00)
[2019-06-24] MEDS ORDERED: FUROSEMIDE 20 MG TAB PO SCH (09:00)
[2019-06-24] MEDS ORDERED: amLODIPine 10 MG TAB PO SCH (09:00)
[2019-07-08] MEDS ORDERED: ERGOCALCIFEROL 50,000 UNIT CAP PO SCH (09:00)
== END 2019-06-23 14:33 | disposition home health service (06) ==
LOC: OR 13:19 → 4SSUR 18:42 → OR 06-23 14:33
PROVIDERS: ATTEND Orthopaedic Surgery
DX: M17.0 Bilateral primary osteoarthritis of knee (principal); M21.162 Varus deformity, not elsewhere classified, left knee; I25.10 Atherosclerotic heart disease of native coronary artery without angina pectoris; I10 Essential (primary) hypertension; E11.9 Type 2 diabetes mellitus without complications; E66.9 Obesity, unspecified; Z87.891 Personal history of nicotine dependence; Z97.3 Presence of spectacles and contact lenses; Z95.1 Presence of aortocoronary bypass graft; Z98.890 Other specified postprocedural states; Z79.899 Other long term (current) drug therapy; Z91.040 Latex allergy status; Z79.82 Long term (current) use of aspirin; Z68.37 Body mass index [BMI] 37.0-37.9, adult
CPT/HCPCS: 97161; 64448; 76942; 85025; 88300; 73560; 27447; C1713; C1776; J2250; J0171; J1100; J0690 ×2; J2405; J3010; J1885; J2795 ×2; J2704; J0735

== ENCOUNTER → 2020-07-05 | Outpatient (CLI) | payer MEDICARE ==
[2020-07-05 09:17] LABS: African American GFR (CKD) >90 (>60 ml/min/1.73 sqM); Blood Urea Nitrogen 23 mg/dL (9-20); Non-African American GFR(CKD) 82 (>60 ml/min/1.73 sqM)
--- NOTE | 2020-07-05 12:55 | CT ---
EXAMINATION TYPE: CT angio chest DATE OF EXAM: 07/05/2020 COMPARISON: CT chest 10/15/2017 HISTORY: Thoracic aortic aneurysm CT DLP: 1072 mGycm Automated exposure control for dose reduction was used. CONTRAST: CTA scan of the thorax is performed without and with IV Contrast, patient injected with 100 ml mL of Isovue 370, pulmonary embolism protocol. MIP images are created and reviewed. 3D reconstructed imag es are created on an independent workstation and reviewed. FINDINGS: LUNGS: The lungs are grossly clear, there is no concerning parenchymal mass or nodule identified. T here is no pleural effusion or pneumothorax seen. The tracheobronchial tree is patent. AORTA: Proximal descending aorta is ectatic measuring 3.1 cm, ascending aorta approximately 4cm, piero t of the aorta measures approximately 3.7 cm, no additional abnormality in the thoracic aorta. Abdomi nal aorta shows stent graft which is partially visualized. MEDIASTINUM: There is satisfactory enhancement of the pulmonary artery and its branches, there is no CT evidence for pulmonary embolism. There are no greater than 1 cm hilar or mediastinal lymph nodes. No pericardial effusion is seen. OTHER: There is a large posterior diaphragmatic hernia containing stomach, portions of bowel. IMPRESSION: Thoracic aorta aneurysm and additional findings above.
== END | disposition home or self-care (01) ==
LOC: RADCTMAIN 08:29
PROVIDERS: ATTEND Internal Medicine Interventional Cardiology
DX: I77.810 Thoracic aortic ectasia (principal); Z95.828 Presence of other vascular implants and grafts
CPT/HCPCS: 82565; 84520; 71275; 36415; Q9967

== ENCOUNTER → 2020-08-11 | Outpatient (CLI) | payer MEDICARE ==
[2020-08-11 14:17] LABS: Appearance,Urine Clear (Clear); Bilirubin,Urine Negative (Negative); Blood,Urine Negative (Negative); Color,Urine Yellow; Glucose,Urine (UA) Negative (Negative); HCT 48.5 % (39.0-53.0); HGB 16.5 gm/dL (13.0-17.5); Ketones,Urine Negative (Negative); Leukocyte Esterase,Urine Negative (Negative); MCH 30.7 pg (25.0-35.0); MCHC 34.1 g/dL (31.0-37.0); MCV 90.1 fL (80.0-100.0); Mean Platelet Volume 6.9; Nitrite,Urine Negative (Negative); Platelet Count 168 k/uL (150-450); Protein,Urine Negative (Negative); RBC 5.38 m/uL (4.30-5.90); RDW 13.7 % (11.5-15.5); Specific Gravity,Urine 1.015 (1.001-1.035); Urobilinogen,Urine <2.0 mg/dL (<2.0); WBC 5.9 k/uL (3.8-10.6)
[2020-08-11 14:25] LABS: INR 0.9 (<1.2); Partial Thromboplastin Time 24.1 sec (22.0-30.0); Prothrombin Time 10.1 sec (9.0-12.0)
[2020-08-11 14:38] LABS: ALT 13 U/L (4-49); AST 22 U/L (17-59); African American GFR (CKD) >90 (>60 ml/min/1.73 sqM); Albumin 4.2 g/dL (3.5-5.0); Alkaline Phosphatase 82 U/L (38-126); Blood Urea Nitrogen 22 mg/dL (9-20); Calcium 9.2 mg/dL (8.4-10.2); Carbon Dioxide 31 mmol/L (22-30); Glucose 127 mg/dL (74-99); Non-African American GFR(CKD) 89 (>60 ml/min/1.73 sqM); Potassium 4.6 mmol/L (3.5-5.1); Sodium 142 mmol/L (137-145); Total Bilirubin 0.8 mg/dL (0.2-1.3); Total Protein 6.8 g/dL (6.3-8.2)
[2020-08-11 14:44] LABS: Anion Gap 8 mmol/L; Chloride 103 mmol/L (98-107)
== END | disposition home or self-care (01) ==
LOC: LABWHC1 13:26
PROVIDERS: ATTEND Orthopaedic Surgery
DX: Z01.818 Encounter for other preprocedural examination (principal); Z01.812 Encounter for preprocedural laboratory examination; Z79.01 Long term (current) use of anticoagulants
CPT/HCPCS: 36415; 80053; 81003; 85027; 85610; 85730; 87070

== ENCOUNTER → 2020-09-08 | Outpatient (CLI) | payer MEDICARE ==
[2020-09-08 13:19] LABS: HCT 46.9 % (39.0-53.0); HGB 16.6 gm/dL (13.0-17.5); MCHC 35.3 g/dL (31.0-37.0); MCV 87.9 fL (80.0-100.0); Mean Platelet Volume 6.8; Platelet Count 162 k/uL (150-450); RBC 5.34 m/uL (4.30-5.90); RDW 13.7 % (11.5-15.5); WBC 6.3 k/uL (3.8-10.6)
[2020-09-08 13:21] LABS: Appearance,Urine Clear (Clear); Bilirubin,Urine Negative (Negative); Blood,Urine Negative (Negative); Color,Urine Yellow; Glucose,Urine (UA) Negative (Negative); Ketones,Urine Negative (Negative); Leukocyte Esterase,Urine Negative (Negative); Nitrite,Urine Negative (Negative); PH, Urine 6.5 (5.0-8.0); Protein,Urine Negative (Negative); Specific Gravity,Urine 1.014 (1.001-1.035); Urobilinogen,Urine <2.0 mg/dL (<2.0)
[2020-09-08 13:31] LABS: ALT 12 U/L (4-49); AST 23 U/L (17-59); African American GFR (CKD) >90 (>60 ml/min/1.73 sqM); Albumin 4.2 g/dL (3.5-5.0); Alkaline Phosphatase 77 U/L (38-126); Anion Gap 6 mmol/L; Blood Urea Nitrogen 23 mg/dL (9-20); Calcium 9.1 mg/dL (8.4-10.2); Carbon Dioxide 29 mmol/L (22-30); Chloride 105 mmol/L (98-107); Glucose 95 mg/dL (74-99); Non-African American GFR(CKD) 87 (>60 ml/min/1.73 sqM); Sodium 140 mmol/L (137-145); Total Bilirubin 0.7 mg/dL (0.2-1.3); Total Protein 6.7 g/dL (6.3-8.2)
[2020-09-08 13:54] LABS: INR 0.9 (<1.2); Partial Thromboplastin Time 24.1 sec (22.0-30.0); Prothrombin Time 9.9 sec (9.0-12.0)
== END | disposition home or self-care (01) ==
LOC: LABPAT 11:07
PROVIDERS: ATTEND Orthopaedic Surgery
DX: Z01.818 Encounter for other preprocedural examination (principal); M17.11 Unilateral primary osteoarthritis, right knee
CPT/HCPCS: 36415; 80053; 81003; 85027; 85610; 85730

== ENCOUNTER 2020-09-19 10:57 | Day surgery (SDC) | payer MEDICARE ==
[2020-09-13 11:21] VITALS: BMI 40.1
[~2020-09-19 10:57] MED LIST changes: +ACETAMINOPHEN TAB 500 MG TAB PO PRN; -DEXAMETHASONE SOD PHOSPHATE 10 MG/ML 1 ML VIAL IV ONE; +LIDOCAINE 1% (10MG/ML) FOR IV START INTRADERMA PRN; +MELOXICAM 7.5 MG TAB PO PRN; -MIDAZOLAM 2 MG/2 ML VIAL IV PRN; -ONDANSETRON 4 MG/2 ML VIAL IVP ONE; +ONDANSETRON 4 MG/2 ML VIAL IVP PRN; +TRANEXAMIC ACID 1,000 MG in SODIUM CHLORIDE 0.9% 100 ML IVPB PRN; +ceFAZolin 3 GM in SODIUM CHLORIDE 0.9% 100 ML IVPB PRN
[2020-09-19] MEDS: LACTATED RINGERS 1,000 ML IV SCH ×3 (11:35→17:37)
[2020-09-19] MEDS ORDERED: MIDAZOLAM 2 MG/2 ML VIAL IVP ONE (12:05)
[2020-09-19] MEDS ORDERED: fentaNYL (PF) 50 MCG/ML 2 ML AMP IVP ONE (12:06)
[2020-09-19] MEDS ORDERED: LIDOCAINE 1% INJ 10MG/ML (20 ML MDV) ONE (12:19)
[2020-09-19] MEDS ORDERED: MIDAZOLAM 2 MG/2 ML VIAL ONE (12:19)
[2020-09-19] MEDS ORDERED: TRANEXAMIC ACID 1,000 MG/10 ML VIAL ONE (12:19)
[2020-09-19] MEDS ORDERED: ROPIVACAINE 5 MG/ML 30 ML VIAL ONE (12:19)
[2020-09-19] MEDS ORDERED: ePHEDrine SULFATE/0.9% NACL/PF 50 MG/5 ML SYRINGE IV ONE (12:19)
[2020-09-19] MEDS ORDERED: PHENYLEPHRINE-0.9% NACL SYG 1,000 MCG/10 ML SYRINGE ONE (12:19)
[2020-09-19] MEDS ORDERED: SODIUM CHLORIDE 0.9% 100 ML BAG ONE (12:19)
[2020-09-19] MEDS ORDERED: PROPOFOL 10 MG/ML 20 ML VIAL IV ONE (12:19)
[2020-09-19] MEDS ORDERED: SUCCINYLCHOLINE CHLORIDE VIAL 200 MG/10 ML VIAL IV ONE (12:19)
[2020-09-19] MEDS ORDERED: fentaNYL (PF) 50 MCG/ML 2 ML AMP ONE (12:19)
[2020-09-19] MEDS ORDERED: ceFAZolin 3,000 MG in SODIUM CHLORIDE 0.9% IRRIGATIO 3,000 ML IRRIGATION ONE (12:47)
[2020-09-19] MEDS: ROPIVACAINE/EPI/CLONIDINE/KET 50 ML SYRINGE MISCELLANE PRN ×2 (13:17→13:39)
--- NOTE | 2020-09-19 13:57 | P.OP ---
Date of Procedure: 09/19/20 Procedure(s) Performed: PREOPERATIVE DIAGNOSIS: Right knee severe osteoarthritis with genu varum POSTOPERATIVE DIAGNOSIS: Right knee severe osteoarthritis with genu varum OPERATION: Right knee cemented total replacement arthroplasty. ANESTHESIA: Spinal ESTIMATED BLOOD LOSS: 50 ml. DATA SECURITY COORDINATOR: Rani Crespo PA-C (assistance with: patient positioning, retraction, exposure, hemostasis, leg positioning, implantation, irrigation, closure, dressing) COMPLICATIONS: None apparent. COMPONENTS IMPLANTED: Journey II total knee system from [employer] INDICATIONS: Mr. Leahy is a 69 year old male with a history of right knee osteoarthritis. The patient's knee is end-stage, and conservative management has failed. He has successfully had reconstruction of his left knee with no surgical complications but urinary retention postop. The operation of knee replacement has been discussed at length in the office, as well as potential risks and complications. These are inclusive of, but not limited to: bleeding, infection, scarring, discomfort, blood vessel and nerve damage, need for further surgery, failure to relieve symptoms, persistence, recurrence, or worsening of problems, loosening, dislocation, wear, blood clot, pulmonary embolism, , gait dysfunction, stiffness, and other risks as discussed in the office. The patient elects to proceed and the consent form has been signed. PROCEDURE: The patient was taken to the operating room and positioned on the operating room table in the supine position. Anesthesia was initiated. Care was taken to make sure that all pressure points were adequately padded. The operative lower extremity was prepped and draped in the usual aseptic fashion using ChloraPrep. Ioban drape was used for the case and the patient received intravenous antibiotics within one hour of the incision. A pneumotourniquet and leg blount were used for the case. The limb was exsanguinated with an Esmarch bandage and the tourniquet was inflated to 325 mmHg. Time-out was called confirming the patient's identity, side, procedure and administration of anti biotics and tranexamic acid. The incision was then created midline directly over the knee, carried down through skin and into the subcutaneous tissues and down to fascia. Full thickness subcutaneous medial flap was developed. Medial parapatellar arthrotomy was performed and the interior of the knee was inspected. There was end-stage osteoarthritis of the knee with a mild to moderate genu varum type deformity. The fat pad was excised and proximal medial release on the tibia was completed using meticulous dissection and a curved osteotome. The anterior cruciate ligament was taken down. Note was made of significant attrition of the anterior and significant degenerative appearance of the cruciate ligaments. The exposure was excellent. The knee was flexed 90 degrees and the patella was everted. A spot was chosen on the femur approximately 1 cm anterior to the posterior cruciate ligament insertion and an intramedullary hole was created within the femur. The intramedullary guide was set to 5 degrees of valgus. The distal cutting block was attached and pinned into position. An appropriate amount of distal femoral resection was set. The oscillating saw was then used to make the distal femoral cut. This cut was confirmed to be flat with the flat end of an osteotome. The retractors were placed around the tibia and the tibial surface was addressed. The angle and depth of resection was adjusted using an extramedullary cutting guide. The guide had a built-in 3 degree posterior slope cut. Once the cutting guide was adjusted appropriately and in line with the axis of the tibia and confirmed to be in good position in relation to the second metatarsal and transmalleolar axis, the tibial cut was then created with protection of the posterior neurovascular structures and the collateral ligaments. The tibial cut surface was removed and sized. Femoral sizing was then accomplished using anterior referencing. Care was taken to analyze the posterior condyles for signs of deficiency or severe wear, and adjustments to the guide were made, as appropriate. Guide was set to 3 degree external rotation. The cutting jig for the femur was applied to these pin sites marking the rotation of the femoral component. The planned cuts were further analyzed prior to performing them with the oscillating saw. No femoral notching was produced. Bone fragments were removed and the cut surfaces were finished, as necessary, with an oscillating saw. Spacer block technique was then used to confirm that the flexion and extension gaps were equal. Soft tissue releases and adjustment of the tibial and/or femoral cuts were made, as necessary, until the gaps were equal. This included release of the posterior cruciate ligament, which was excessively tight in this patient. The femur was then further finished for a posterior cruciate ligament substituting component. Patellar resurfacing was performed using a reamer. The size of the required patellar component was estimated and the patellar surface was then reamed down to a residual thickness which would recreate the [place] thickness with the component. The exact placement of the patellar component was adjusted for position based on preoperative x-rays and intraoperative findings. Prior to placing trial components, anesthetic solution consisting of ropivicaine with epinephrine, ketorolac, and clonidine was injected carefully and methodically in a grid pattern using aspiration technique into the soft tissue around the knee circumferentially, starting with the deeper tissues first and progressing to fascia, and then finally the skin/subcutaneous tissue. Particular care was taken when injecting the posterior capsule. The trial components were inserted. The tibial tray was allowed to self center and the patella was noted to track very well. The position of the tibial component was marked and the tibia was then finished for a stemmed tibial component. Cement was mixed on the back table and applied to the final compo nents. Trial components were removed and the cut surfaces of the bone were pulse lavaged thoroughly and dried. Cement was then applied to the tibial surface and pressurized into the surface using finger pressurization technique. The tibial component was then applied and excess cement was removed after it was impacted securely and noted to be flush with the cut surface. In similar fashion, the cement was applied to the cut femoral surface, pressurized in using finger pressurization and the component was impacted into place. Excess cement was removed. The polyethylene spacer was then implanted and locked into position. The patellar component was then applied in similar technique and a patellar clamp was used to hold the patella in place as the cement hardened. Once the cement had fully hardened, the knee was reinspected. Any other cement extrusion was removed and final kinematic testing showed range of motion from 0 to 130 degrees with excellent stability, both medially and laterally and appropriate alignment of the leg. Patellar tracking was excellent. The knee was then thoroughly pulse lavaged with normal saline. The tourniquet was deflated and hemostasis was obtained with electrocautery and IV tranexamic acid, 1 g given at the start of the operation and 1 g at the start of closure. Closure was with #2 Ethibond in the fascia/capsule and supplemented with #2 Quill, 2-0 Vicryl suture was used for the subcutaneous tissues and 3-0 Quill for the skin. Dermabond/Steri-Strips were then applied. A lightly compressive dressing was applied using Webril and an Finesse wrap. The patient was then transferred to stretcher and taken to the recovery room in stable condition. Sponge and needle counts were correct.
[2020-09-19] MEDS ORDERED: NALOXONE 0.4 MG/ML 1 ML VIAL IV PRN (14:24)
[2020-09-19] MEDS ORDERED: HYDROmorphone 0.5 MG/0.5 ML SYRINGE IVP PRN (14:24)
[2020-09-19] MEDS ORDERED: MAGNESIUM HYDROXIDE 2,400 MG/10 ML CUP PO PRN (14:24)
[2020-09-19] MEDS ORDERED: ONDANSETRON 4 MG/2 ML VIAL IVP PRN (14:24)
[2020-09-19] MEDS ORDERED: HYDROmorphone 1 MG/ML 1 ML SYRINGE IVP PRN (14:24)
[2020-09-19] MEDS ORDERED: HYDROmorphone 0.2 MG/1 ML SYRINGE IVP PRN (14:24)
[2020-09-19] MEDS ORDERED: bisacodyL 10 MG SUPP RECTAL PRN (14:24)
[2020-09-19 14:42] VITALS: RESP 16
--- NOTE | 2020-09-19 15:18 | P.ANPRN ---
Procedure Note - Anesthesia - Nerve Block Performed Right Adductor Canal Infusion Time Out Performed: Yes (1203) Date of Procedure: 09/19/20 Procedure Start Time: 12:05 Procedure Stop Time: 12:10 Location of Patient: PreOp Indication: Acute Post-Operative Pain, Requested by Surgeon Specifically requested for management of pain by DrJayleen: Mg Almeida Sedation Type: Sedate with meaningful contact maintained Preparation: Sterile Prep Position: Supine Catheter Depth at Skin (cm): 10 Catheter: Indwelling Needle Types: Pajunk Needle Gauge: 21 Ultrasound used to visualize needle placement: Yes Ultrasound used to observe medication spread: Yes Injectate: 0.5% Ropivacaine (see comment for volume) (20cc) Blood Aspirated: No Pain Paresthesia on Injection Noted: No Resistance on Injection: Normal Image Stored and Saved: Yes Events: Uneventful and Well Tolerated Right iPack Single Time Out Performed: Yes (1203) Date of Procedure: 09/19/20 Procedure Start Time: 12:11 Procedure Stop Time: 12:15 Location of Patient: PreOp Indication: Acute Post-Operative Pain, Requested by Surgeon Specifically requested for management of pain by DrJayleen: Mg Almeida Sedation Type: Sedate with meaningful contact maintained Preparation: Sterile Prep Position: Supine Catheter: None Needle Types: Pajunk Needle Gauge: 21 Ultrasound used to visualize needle placement: Yes Ultrasound used to observe medication spread: Yes Injectate: 0.5% Ropivacaine (see comment for volume) (10cc + 10cc NACL) Blood Aspirated: No Pain Paresthesia on Injection Noted: No Resistance on Injection: Normal Image Stored and Saved: Yes Events: Uneventful and Well Tolerated
[2020-09-19] MEDS ORDERED: ROPIVACAINE 0.2%-NS ON-Q PUMP 2 MG/ML EACH MISCELLANE ONE ×2 (15:30)
--- NOTE | 2020-09-19 15:39 | XR ---
EXAMINATION TYPE: XR knee limited RT DATE OF EXAM: 09/19/2020 CLINICAL HISTORY: Right knee pain and arthritis status post total knee replacement. TECHNIQUE: Portable AP and crosstable lateral views of the right knee are obtained immediately posto peratively. COMPARISON: None FINDINGS: Metallic hardware from total right knee arthroplasty is seen and appears satisfactory in a lignment and position. There is evidence of recent surgery with diffuse subcutaneous gas and soft ti ssue swelling noted. IMPRESSION: METALLIC HARDWARE FROM TOTAL RIGHT KNEE ARTHROPLASTY IS SATISFACTORY IN ALIGNMENT.
[2020-09-19] MEDS ORDERED: ACETAMINOPHEN TAB 500 MG TAB PO PRN (18:19)
[2020-09-19] MEDS ORDERED: METOPROLOL SUCCINATE (ER) 25 MG TAB.ER.24H PO STA (18:27)
[2020-09-19] MEDS ORDERED: SODIUM CHLORIDE 0.9% 500 ML 500 ML IV ONE (18:27)
[2020-09-19] MEDS: ceFAZolin 3 GM in SODIUM CHLORIDE 0.9% 100 ML IVPB SCH (20:06)
[2020-09-19] MEDS: HYDROcodone/APAP 7.5-325MG 1 EACH TAB PO PRN (20:57)
[2020-09-19] MEDS: hydrALAZINE HCL 50 MG TAB PO SCH (20:58)
[2020-09-19] MEDS ORDERED: SENNOSIDES-DOCUSATE SODIUM 1 EACH TAB PO SCH (21:00)
[2020-09-19] MEDS ORDERED: ASPIRIN 81 MG PO SCH (21:00)
[2020-09-20] MEDS: HYDROcodone/APAP 7.5-325MG 1 EACH TAB PO PRN ×2 (01:34→08:05)
[2020-09-20] MEDS: LACTATED RINGERS 1,000 ML IV SCH (04:58)
[2020-09-20] MEDS: ceFAZolin 3 GM in SODIUM CHLORIDE 0.9% 100 ML IVPB SCH (04:58)
[2020-09-20 05:10] VITALS: BP 101/66; PULSE 85; TEMP 97.8
[2020-09-20 07:31] LABS: Basophils % (A) 0 %; Eosinophils % (A) 0 %; HCT 37.8 % (39.0-53.0); Lymphocytes # (A) 0.8 k/uL (1.0-4.8); Lymphocytes % (A) 8 %; MCH 31.2 pg (25.0-35.0); MCHC 34.7 g/dL (31.0-37.0); MCV 89.9 fL (80.0-100.0); Monocytes # (A) 0.8 k/uL (0-1.0); Monocytes % (A) 8 %; Neutrophils # (A) 7.7 k/uL (1.3-7.7); Neutrophils % (A) 82 %; Platelet Count 139 k/uL (150-450); RDW 13.8 % (11.5-15.5); WBC 9.4 k/uL (3.8-10.6)
[2020-09-20 07:35] LABS: HGB 13.1 gm/dL (13.0-17.5)
[2020-09-20] MEDS: hydrALAZINE HCL 50 MG TAB PO SCH (08:07)
[2020-09-20] MEDS ORDERED: FUROSEMIDE 20 MG TAB PO SCH (09:00)
[2020-09-20] MEDS ORDERED: ATORVASTATIN 40 MG TAB PO SCH (09:00)
[2020-09-20] MEDS ORDERED: ASPIRIN 81 MG PO SCH (09:00)
[2020-09-20] MEDS ORDERED: minoxidiL 2.5 MG TAB PO SCH (09:00)
[2020-09-20] MEDS ORDERED: amLODIPine 10 MG TAB PO SCH (09:00)
[2020-09-20] MEDS ORDERED: METOPROLOL SUCCINATE (ER) 25 MG TAB.ER.24H PO SCH (09:00)
[2020-09-20] MEDS ORDERED: MELOXICAM 7.5 MG TAB PO SCH (09:00)
--- NOTE | 2020-09-20 09:22 | P.DS ---
Providers Expected date of discharge: 09/20/20 Attending physician: Mg Almeida Consults: 09/19/20 14:24 Consult Physician Routine Consulting Provider: Martir Menendez Consult Reason/Comments: Med management if pt stays overnight. Do you want consulting provider notified?: Yes Primary care physician: Martir Menendez - Discharge Diagnosis(es) (1) Osteoarthritis of right knee Current Visit: Yes Status: Acute (2) S/P total knee arthroplasty Current Visit: Yes Status: Acute Hospital Course: This is a 69-year-old male with known history of degenerative arthritis of the right knee. The patient presented for evaluation as an outpatient. After discussion and consideration patient elects to proceed with total knee arthroplasty. The patient is seen preoperatively by Dr. Almieda and medically cleared for surgery by their primary care physician. Patient is admitted to [facility] on 09/19/2020 for total knee arthroplasty. The procedure is performed without complication or sequelae. The patient is doing well postoperatively. Labs and vital signs are stable on day of discharge. On day of discharge patient's knee incision is healing well. There is minimal erythema. There is no drainage noted at this time. There is minimal soft tissue swelling to the knee. Patient has full foot and ankle motion without difficulty or pain. Calf is soft and nontender to palpation. Neurovascular status to the right lower extremity is intact. Patient is discharged home in good condition. Opioid start talking form is reviewed and signed. Please see med rec for accurate list of home medications. Plan - Discharge Summary Discharge Rx Participant: No New Discharge Prescriptions: New Meloxicam [Mobic] 1 - 2 tab PO DAILY PRN #60 tab PRN Reason: Pain HYDROcodone/APAP 7.5-325MG [[place] 7.5-325] 1 - 2 tab PO Q6HR PRN #42 tab PRN Reason: Pain Sennosides-Docusate Sodium [Senokot-S] 1 tab PO BID #60 tablet Ondansetron Odt [Zofran Odt] 4 mg PO Q8HR PRN #14 tab PRN Reason: Nausea Aspirin [Adult Low Dose Aspirin EC] 81 mg PO BID #1 tablet. Gabapentin [Neurontin] 300 mg PO BID 5 Days #10 cap No Action amLODIPine BESYLATE [Norvasc] 10 mg PO QAM hydrALAZINE HCL [Apresoline] 100 mg PO TID Furosemide [Lasix] 20 mg PO QAM Atorvastatin [Lipitor] 40 mg PO DAILY minoxidiL [Minoxidil] 2.5 mg PO QAM Aspirin [Adult Low Dose Aspirin EC] 81 mg PO DAILY Acetaminophen [Tylenol Extra Strength] 1,000 mg PO HS PRN PRN Reason: Pain Metoprolol Succinate (ER) [Toprol Xl] 25 mg PO QAM Ergocalciferol (Vitamin D2) [Vitamin D2 (50,000 Iu)] 2,500 mcg PO Q30D Discharge Medication List amLODIPine BESYLATE [Norvasc] 10 mg PO QAM 11/20/17 [History] hydrALAZINE HCL [Apresoline] 100 mg PO TID 11/20/17 [History] Aspirin [Adult Low Dose Aspirin EC] 81 mg PO DAILY 06/15/19 [History] Atorvastatin [Lipitor] 40 mg PO DAILY 06/15/19 [History] Furosemide [Lasix] 20 mg PO QAM 06/15/19 [History] minoxidiL [Minoxidil] 2.5 mg PO QAM 06/15/19 [History] Acetaminophen [Tylenol Extra Strength] 1,000 mg PO HS PRN 09/13/20 [History] Ergocalciferol (Vitamin D2) [Vitamin D2 (50,000 Iu)] 2,500 mcg PO Q30D 09/13/20 [History] Metoprolol Succinate (ER) [Toprol Xl] 25 mg PO QAM 09/13/20 [History] Aspirin [Adult Low Dose Aspirin EC] 81 mg PO BID #1 tablet. 09/19/20 [Rx] Gabapentin [Neurontin] 300 mg PO BID 5 Days #10 cap 09/19/20 [Rx] HYDROcodone/APAP 7.5-325MG [[place] 7.5-325] 1 - 2 tab PO Q6HR PRN #42 tab 09/19/20 [Rx] Meloxicam [Mobic] 1 - 2 tab PO DAILY PRN #60 tab 09/19/20 [Rx] Ondansetron Odt [Zofran Odt] 4 mg PO Q8HR PRN #14 tab 09/19/20 [Rx] Sennosides-Docusate Sodium [Senokot-S] 1 tab PO BID #60 tablet 09/19/20 [Rx] Follow up Appointment(s)/Referral(s): Rani Crespo, LILLY [PHYSICIAN INFORMATION TECHNOLOGY ADVISOR] - 2 Weeks [facility], [NON-STAFF] - ([facility] will call patient to arrange a time for his first home physical therapy appointment for 09/20/20.) Activity/Diet/Wound Care/Special Instructions: May bear wt as tolerated w walker. May shower 2 days post op. Keep Optifoam dressing intact 7-10 days. Discharge Disposition: HOME WITH HOME HEALTH SERVICES
--- NOTE | 2020-09-20 22:36 | PN ---
PROGRESS NOTE DATE OF SERVICE: 09/20/2020. CHIEF COMPLAINT: Status post right knee replacement. HISTORY OF PRESENT ILLNESS: This gentleman is doing well. He has had no significant pain, fever, chills, nausea, etc. PHYSICAL EXAMINATION: Chest is clear. Cardiac exam is normal. Abdomen is soft, nontender. Vital signs normal. IMPRESSION: 1. Status post right knee replacement. 2. Hypertension. PLAN: Probably home today. MMODL / IJN: [id number] /
--- NOTE | 2020-09-20 23:06 | CONS ---
CONSULTATION CHIEF COMPLAINT: Arthritis of the right knee. HISTORY OF PRESENT ILLNESS: This is another admission for this 69-year-old white male who has come in for elective right knee replacement. Past medical history is only seen significant for history of hypertension and arthritis. REVIEW OF SYSTEMS: He has had no recent headaches, neurologic problems, change in vision hearing, chest pain, shortness of breath, cough, hemoptysis, angina, orthopnea, PND, abdominal pain, nausea, vomiting, hematemesis, melena, hematochezia, jaundice, hepatitis, dysuria, frequency, urgency and nocturia, incontinence, renal failure, diabetes, etc. Past medical history, family history and personal and social histories also reveal that he is ALLERGIC to [employer]. He is on amlodipine, hydralazine, furosemide, atorvastatin, Minoxidil, metoprolol, aspirin, vitamin D. The remainder of his history is unremarkable. He used to be a smoker and does not drink. PHYSICAL EXAMINATION: Blood pressure 120/80, pulse 75 and regular, respirations 16. He is afebrile. In general he appeared to be well developed, well nourished, in no acute distress. He was slightly overweight. Head, ears, eyes, nose, mouth and throat were normal. There is no neck vein distention. Carotids are normal. Chest is clear to auscultation and percussion. The cardiac exam is normal. No murmurs or extra sounds. The abdomen is protuberant, soft and nontender. Extremities: Normal. Neurologically: He is intact. IMPRESSION: He is admitted to the hospital with diagnoses: 1. Osteoarthritis of right knee. 2. Hypertension. RECOMMENDATIONS: None. Thank you for this consultation. MMODL / IJN: [id number] /
== END 2020-09-20 11:55 | disposition home health service (06) ==
LOC: OR 10:57 → 5NMEDONC 14:14 → OR 09-20 11:55
PROVIDERS: ATTEND Orthopaedic Surgery
DX: M17.11 Unilateral primary osteoarthritis, right knee (principal); M21.161 Varus deformity, not elsewhere classified, right knee; I10 Essential (primary) hypertension; I35.1 Nonrheumatic aortic (valve) insufficiency; I44.0 Atrioventricular block, first degree; E78.5 Hyperlipidemia, unspecified; J44.9 Chronic obstructive pulmonary disease, unspecified; K21.9 Gastro-esophageal reflux disease without esophagitis; F17.210 Nicotine dependence, cigarettes, uncomplicated; E66.01 Morbid (severe) obesity due to excess calories; Z68.41 Body mass index [BMI] 40.0-44.9, adult; Z79.82 Long term (current) use of aspirin; Z79.899 Other long term (current) drug therapy; Z96.652 Presence of left artificial knee joint; Z91.040 Latex allergy status; Z82.49 Family history of ischemic heart disease and other diseases of the circulatory system
CPT/HCPCS: 97110; 97161; 64999; 64448; 76942; 85025; 88300; 87635; 73560; 27447; C1713; C1776; S0139; J2250; J0330; J0690 ×2; J2405; J2001; J3010; J2795 ×2; J2370; J2704

== ENCOUNTER 2020-09-22 17:07 | Inpatient (IN) | payer MEDICARE ==
[2020-09-22 18:22] LABS: Basophils # (A) 0.1 k/uL (0-0.2); Basophils % (A) 1 %; Eosinophils # (A) 0.2 k/uL (0-0.7); Eosinophils % (A) 2 %; HCT 37.4 % (39.0-53.0); HGB 13.2 gm/dL (13.0-17.5); Lymphocytes # (A) 0.7 k/uL (1.0-4.8); Lymphocytes % (A) 7 %; MCH 31.1 pg (25.0-35.0); MCHC 35.2 g/dL (31.0-37.0); MCV 88.4 fL (80.0-100.0); Mean Platelet Volume 7.1; Monocytes # (A) 0.7 k/uL (0-1.0); Monocytes % (A) 7 %; Neutrophils # (A) 8.1 k/uL (1.3-7.7); Neutrophils % (A) 81 %; Platelet Count 161 k/uL (150-450); RBC 4.23 m/uL (4.30-5.90); RDW 13.7 % (11.5-15.5)
[2020-09-22 18:35] LABS: Albumin 3.4 g/dL (3.5-5.0); Calcium 8.6 mg/dL (8.4-10.2); Magnesium 2.2 mg/dL (1.6-2.3); Potassium 4.1 mmol/L (3.5-5.1); Total Bilirubin 0.7 mg/dL (0.2-1.3); Total Protein 5.7 g/dL (6.3-8.2)
[2020-09-22 18:40] LABS: INR 0.9 (<1.2); Partial Thromboplastin Time 22.5 sec (22.0-30.0); Prothrombin Time 10.2 sec (9.0-12.0)
[2020-09-22 18:42] LABS: D-Dimer 3.49 mg/L FEU (<0.60)
--- NOTE | 2020-09-22 19:04 | XR ---
EXAMINATION: XR chest 1V portable DATE AND TIME: 09/22/2020 6:35 PM CLINICAL INDICATION: PHH; shortness of breath TECHNIQUE: AP upright portable COMPARISON: CT 07/05/2020 FINDINGS: The elevated left hemidiaphragm corresponds with the previously seen large posterior diaphragmatic he rnia containing stomach and portions of other bowel. This does not allow evaluation of the right mid and lower lung zone. Also limiting radiographic evaluation of the prominent overlying soft tissues. There is evidence of a mild fine reticular pattern throughout right lower lung zones, suggesting the possibility of interstitial pulmonary edema if clinically supported. Radiographic differential also i ncludes pneumonitis. The pleural spaces are negative. The cardiac silhouette is unremarkable. The skeletal structures and soft tissues are negative for acute findings. IMPRESSION: Suspect mild interstitial phase pulmonary edema, with discussion above.
[2020-09-22] MEDS ORDERED: HEPARIN SODIUM 1,000 UN/ML (10ML VL) IV ONE ×2 (19:08→19:43)
[2020-09-22] MEDS ORDERED: HEPARIN SODIUM 1,000 UN/ML (10ML VL) IV PRN ×2 (19:08→20:07)
[2020-09-22] MEDS ORDERED: HEPARIN SOD,PORK IN 0.45% NACL 25,000 UNIT in 0.45% NACL 1 250ML.BAG IV SCH ×2 (19:15→19:45)
--- NOTE | 2020-09-22 19:35 | ED ---
SOB HPI - General Chief Complaint: Shortness of Breath Stated Complaint: Low o2/sob/post knee surgery Time Seen by Provider: 09/22/20 17:33 Source: patient, EMS Mode of arrival: EMS Limitations: no limitations - History of Present Illness Initial Comments: 69-year-old male who presents to the emergency department from home for low O2 saturations. Patient is status post total knee replacement on the right on Saturday by Dr. Almeida. He had the home care nurse come to his house today. They found his pulse ox to be in the 60s. Patient denied being short of breath. They did call and notify Dr. Menendez who recommended that he come into the emergency room in for evaluation. Patient denies any chest pain. No cough, fevers or chills. He has been taking a baby aspirin since his knee replacement on Saturday. Denies previous history of cardiac disease. States that he had a stress test in June previous to his surgeries which was normal and he was cleared for surgery. He sees Dr. Tang. Denies history of congestive heart failure. No history of DVT or PE. No other alleviating, precipitating or modifying factors - Related Data Home Medications Medication Instructions Recorded Confirmed amLODIPine BESYLATE [Norvasc] 10 mg PO DAILY 11/20/17 09/22/20 hydrALAZINE HCL [Apresoline] 100 mg PO TID 11/20/17 09/22/20 Aspirin [Adult Low Dose Aspirin EC] 81 mg PO DAILY 06/15/19 09/22/20 Atorvastatin [Lipitor] 40 mg PO DAILY 06/15/19 09/22/20 Furosemide [Lasix] 20 mg PO DAILY 06/15/19 09/22/20 minoxidiL [Minoxidil] 2.5 mg PO DAILY 06/15/19 09/22/20 Ergocalciferol (Vitamin D2) 2,500 mcg PO Q30D 09/13/20 09/22/20 [Vitamin D2 (50,000 Iu)] Metoprolol Succinate (ER) [Toprol 25 mg PO DAILY 09/13/20 09/22/20 Xl] Gabapentin [Neurontin] 300 mg PO BID PRN 09/22/20 09/22/20 Previous Rx's Medication Instructions Recorded HYDROcodone/APAP 7.5-325MG [[place] 1 - 2 tab PO Q6HR PRN #42 tab 09/19/20 7.5-325] Meloxicam [Mobic] 1 - 2 tab PO DAILY PRN #60 tab 09/19/20 Ondansetron Odt [Zofran Odt] 4 mg PO Q8HR PRN #14 tab 09/19/20 Sennosides-Docusate Sodium 1 tab PO BID #60 tablet 09/19/20 [Senokot-S] Allergies Allergy/AdvReac Type Severity Reaction Status Date / Time latex Allergy Rash/Hives Verified 09/22/20 19:42 Review of Systems ROS Statement: Those systems with pertinent positive or pertinent negative responses have been documented in the HPI. ROS Other: All systems not noted in ROS Statement are negative. Past Medical History Past Medical History: GERD/Reflux, Hyperlipidemia, Hypertension, Osteoarthritis (OA) History of Any Multi-Drug Resistant Organisms: None Reported Past Surgical History: Hernia Repair, Joint Replacement, Orthopedic Surgery, Tonsillectomy Additional Past Surgical History / Comment(s): rotator cuff Right x2, rt shoulder replacement, groin and abdomen hernias, benign growth on thyroid Past Anesthesia/Blood Transfusion Reactions: No Reported Reaction Past Psychological History: No Psychological Hx Reported Smoking Status: Never smoker Past Alcohol Use History: None Reported Past Drug Use History: None Reported - Past Family History Mother Family Medical History: No Reported History General Exam Limitations: no limitations General appearance: alert, in no apparent distress Head exam: Present: atraumatic, normocephalic, normal inspection Eye exam: Present: normal appearance, PERRL, EOMI. Absent: scleral icterus, conjunctival injection, periorbital swelling ENT exam: Present: normal exam, mucous membranes moist Neck exam: Present: normal inspection. Absent: tenderness, meningismus, lymphadenopathy Respiratory exam: Present: normal lung sounds bilaterally. Absent: respiratory distress, wheezes, rales, rhonchi, stridor Cardiovascular Exam: Present: normal rhythm, tachycardia, normal heart sounds. Absent: systolic murmur, diastolic murmur, rubs, gallop, clicks GI/Abdominal exam: Present: soft, normal bowel sounds. Absent: distended, tenderness, guarding, rebound, rigid Extremities exam: Present: normal inspection, full ROM, normal capillary refill. Absent: tenderness, pedal edema, joint swelling, calf tenderness Back exam: Present: normal inspection Neurological exam: Present: alert, oriented X3, CN II-XII intact Psychiatric exam: Present: normal affect, normal mood Skin exam: Present: warm, dry, intact, normal color. Absent: rash Course Vital Signs 09/22/20 09/22/20 09/22/20 17:08 20:08 22:14 Temperature 98.9 F Pulse Rate 105 H 74 75 Respiratory 20 16 18 Rate Blood Pressure 139/86 101/61 126/83 O2 Sat by Pulse 87 L 94 L 94 L Oximetry - Reevaluation(s) Reevaluation #1: Spoke with Dr. Kelly who recommended high dose heparin gtt without bolus, aspirin, atorvastatin, lasix and metoprolol. 09/22/20 20:08 Medical Decision Making - Medical Decision Making Upon arrival patient is placed into room 11. He is found to be hypoxic saturating only 87%. He is placed on 2 L. 12-lead EKG is performed which demonstrates a sinus tachycardia. IV is established. Laboratory studies are conducted. Patient's d-dimer is 3.49. Troponin is 2.1. BNP is 6170. Chest x- ray was performed which demonstrates mild interstitial phase pulmonary edema. Patient is sent for CT which demonstrates no signs of pulmonary embolism or pulmonary edema. Because the patient's elevated troponin level I did speak with Dr. Loredo. He does recommend high-dose heparin without bolus. Also recommends atorvastatin, aspirin, low-dose metoprolol twice daily and a dose of Lasix. This is discussed with the patient's. I did recommend hospital admission. Called and spoke with Dr. Menendez who agreed to admit the patient. Heart rate has normalized. Patient comfotable on 2L [facility]. patient remained in stable condition awaiting a bed - Lab Data Result diagrams: 09/24/20 05:24 09/24/20 05:24 Lab Results 09/22/20 09/22/20 09/22/20 Range/Units 18:12 18:12 18:12 WBC 10.0 (3.8-10.6) k/uL RBC 4.23 L (4.30-5.90) m/uL Hgb 13.2 (13.0-17.5) gm/dL Hct 37.4 L (39.0-53.0) % MCV 88.4 (80.0-100.0) fL MCH 31.1 (25.0-35.0) pg MCHC 35.2 (31.0-37.0) g/dL RDW 13.7 (11.5-15.5) % Plt Count 161 (150-450) k/uL MPV 7.1 Neutrophils % 81 % Lymphocytes % 7 % Monocytes % 7 % Eosinophils % 2 % Basophils % 1 % Neutrophils # 8.1 H (1.3-7.7) k/uL Lymphocytes # 0.7 L (1.0-4.8) k/uL Monocytes # 0.7 (0-1.0) k/uL Eosinophils # 0.2 (0-0.7) k/uL Basophils # 0.1 (0-0.2) k/uL PT 10.2 (9.0-12.0) sec INR 0.9 (<1.2) APTT 22.5 (22.0-30.0) sec D-Dimer 3.49 H (<0.60) mg/L FEU Sodium (137-145) mmol/L Potassium (3.5-5.1) mmol/L Chloride (98-107) mmol/L Carbon Dioxide (22-30) mmol/L Anion Gap mmol/L BUN (9-20) mg/dL Creatinine (0.66-1.25) mg/dL Est GFR (CKD-EPI)AfAm (>60 ml/min/1.73 sqM) Est GFR (CKD-EPI)NonAf (>60 ml/min/1.73 sqM) Glucose (74-99) mg/dL Plasma Lactic Acid Adan (0.7-2.0) mmol/L Calcium (8.4-10.2) mg/dL Magnesium (1.6-2.3) mg/dL Total Bilirubin (0.2-1.3) mg/dL AST (17-59) U/L ALT (4-49) U/L Alkaline Phosphatase (38-126) U/L Troponin I (0.000-0.034) ng/mL NT-Pro-B Natriuret Pep pg/mL Total Protein (6.3-8.2) g/dL Albumin (3.5-5.0) g/dL Influenza Type A (PCR) Not Detected (Not Detectd) Influenza Type B (PCR) Not Detected (Not Detectd) RSV (PCR) Not Detected (Not Detectd) SARS-CoV-2 (PCR) Not Detected (Not Detectd) 09/22/20 09/22/20 09/22/20 Range/Units 18:12 18:12 18:12 WBC (3.8-10.6) k/uL RBC (4.30-5.90) m/uL Hgb (13.0-17.5) gm/dL Hct (39.0-53.0) % MCV (80.0-100.0) fL MCH (25.0-35.0) pg MCHC (31.0-37.0) g/dL RDW (11.5-15.5) % Plt Count (150-450) k/uL MPV Neutrophils % % Lymphocytes % % Monocytes % % Eosinophils % % Basophils % % Neutrophils # (1.3-7.7) k/uL Lymphocytes # (1.0-4.8) k/uL Monocytes # (0-1.0) k/uL Eosinophils # (0-0.7) k/uL Basophils # (0-0.2) k/uL PT (9.0-12.0) sec INR (<1.2) APTT (22.0-30.0) sec D-Dimer (<0.60) mg/L FEU Sodium 134 L (137-145) mmol/L Potassium 4.1 (3.5-5.1) mmol/L Chloride 98 (98-107) mmol/L Carbon Dioxide 32 H (22-30) mmol/L Anion Gap 4 mmol/L BUN 31 H (9-20) mg/dL Creatinine 1.13 (0.66-1.25) mg/dL Est GFR (CKD-EPI)AfAm 76 (>60 ml/min/1.73 sqM) Est GFR (CKD-EPI)NonAf 65 (>60 ml/min/1.73 sqM) Glucose 153 H (74-99) mg/dL Plasma Lactic Acid Adan 1.4 (0.7-2.0) mmol/L Calcium 8.6 (8.4-10.2) mg/dL Magnesium 2.2 (1.6-2.3) mg/dL Total Bilirubin 0.7 (0.2-1.3) mg/dL AST 53 (17-59) U/L ALT 15 (4-49) U/L Alkaline Phosphatase 69 (38-126) U/L Troponin I 2.120 H* (0.000-0.034) ng/mL NT-Pro-B Natriuret Pep pg/mL Total Protein 5.7 L (6.3-8.2) g/dL Albumin 3.4 L (3.5-5.0) g/dL Influenza Type A (PCR) (Not Detectd) Influenza Type B (PCR) (Not Detectd) RSV (PCR) (Not Detectd) SARS-CoV-2 (PCR) (Not Detectd) 09/22/20 Range/Units 18:12 WBC (3.8-10.6) k/uL RBC (4.30-5.90) m/uL Hgb (13.0-17.5) gm/dL Hct (39.0-53.0) % MCV (80.0-100.0) fL MCH (25.0-35.0) pg MCHC (31.0-37.0) g/dL RDW (11.5-15.5) % Plt Count (150-450) k/uL MPV Neutrophils % % Lymphocytes % % Monocytes % % Eosinophils % % Basophils % % Neutrophils # (1.3-7.7) k/uL Lymphocytes # (1.0-4.8) k/uL Monocytes # (0-1.0) k/uL Eosinophils # (0-0.7) k/uL Basophils # (0-0.2) k/uL PT (9.0-12.0) sec INR (<1.2) APTT (22.0-30.0) sec D-Dimer (<0.60) mg/L FEU Sodium (137-145) mmol/L Potassium (3.5-5.1) mmol/L Chloride (98-107) mmol/L Carbon Dioxide (22-30) mmol/L Anion Gap mmol/L BUN (9-20) mg/dL Creatinine (0.66-1.25) mg/dL Est GFR (CKD-EPI)AfAm (>60 ml/min/1.73 sqM) Est GFR (CKD-EPI)NonAf (>60 ml/min/1.73 sqM) Glucose (74-99) mg/dL Plasma Lactic Acid Adan (0.7-2.0) mmol/L Calcium (8.4-10.2) mg/dL Magnesium (1.6-2.3) mg/dL Total Bilirubin (0.2-1.3) mg/dL AST (17-59) U/L ALT (4-49) U/L Alkaline Phosphatase (38-126) U/L Troponin I (0.000-0.034) ng/mL NT-Pro-B Natriuret Pep 6170 pg/mL Total Protein (6.3-8.2) g/dL Albumin (3.5-5.0) g/dL Influenza Type A (PCR) (Not Detectd) Influenza Type B (PCR) (Not Detectd) RSV (PCR) (Not Detectd) SARS-CoV-2 (PCR) (Not Detectd) - EKG Data EKG Comments: EKG demonstrates sinus rhythm with first-degree block. Rate of 96. NM interval 254. QRS 104. QTC of 432. ST depression in the inferior leads as well as V3 through V6 Critical Care Time Critical Care Time: Yes Critical Care Time: 32 minutes for initiation of heparin and cardiology consultation for NSTEMI. Disposition Clinical Impression: S/P total knee arthroplasty, NSTEMI (non-ST elevated myocardial infarction), Hypoxia, Elevated d-dimer Disposition: ADMITTED IP TO THIS HOSP Condition: Serious Is patient prescribed a controlled substance at d/c from ED?: No Decision to Admit Reason: Admit from EC Decision Date: 09/22/20 Decision Time: 20:15
--- NOTE | 2020-09-22 19:37 | CT ---
EXAMINATION TYPE: CT CHEST ANGIO FOR PE WITH CONTRAST AND WITH 3-D RECONSTRUCTION RENDERINGS DATE OF EXAM: 09/22/2020 COMPARISON: 07/05/2020 HISTORY: Post op, decreased O2 sats. CT DLP: 753.9 mGycm Automated exposure control for dose reduction was used. CONTRAST: CT Chest for pulmonary embolism performed with with IV Contrast, patient injected with 100 mL of Isovue 370. FINDINGS: Pleural spaces: There are no abnormal gas collections. No pleural effusions. Airways/lungs: The airways are unremarkable. There is a 4 cm zone of lung consolidation, volume loss, and air bronchograms seen at the uppermost margin of the massive and previously seen posterior diaph ragmatic hernia containing stomach and other bowel. This can be a chronic finding related to the elev ated hemidiaphragm, but can correlate with clinical diagnosis of focal pneumonia. The lungs are other richards clear with no evidence for pulmonary edema. Mediastinum: There is no pulmonary embolism. No acute aortic findings. No cardiomegaly or pericardial effusion. No adenopathy. Other: No other acute findings. IMPRESSION: 1. Negative for pulmonary embolism or pulmonary edema. 2. Elevated left hemidiaphragm: Small zone of consolidative opacity at the upper most margin of the large posterior hernia.
[2020-09-22] MEDS ORDERED: ASPIRIN 325 MG TAB PO STA (20:09)
[2020-09-22] MEDS ORDERED: FUROSEMIDE 10 MG/ML 4 ML VIAL IV STA (20:10)
[2020-09-22] MEDS ORDERED: ATORVASTATIN 80 MG TAB PO STA (20:11)
[2020-09-22] MEDS ORDERED: NALOXONE 0.4 MG/ML 1 ML VIAL IV PRN (20:16)
[2020-09-22] MEDS: HEPARIN SOD,PORK IN 0.45% NACL 25,000 UNIT in 0.45% NACL 1 250ML.BAG IV SCH (20:51)
[2020-09-22] MEDS ORDERED: HYDROcodone/APAP 7.5-325MG 1 EACH TAB PO PRN (21:04)
[2020-09-22] MEDS ORDERED: GABAPENTIN 300 MG CAP PO PRN (21:04)
--- NOTE | 2020-09-22 22:03 | US ---
EXAMINATION TYPE: US venous doppler duplex LE RT DATE OF EXAM: 09/22/2020 9:47 PM COMPARISON: NONE CLINICAL HISTORY: swelling. Swelling. Hx right knee replacement 3 days ago 09/19/20. No hx of DVT. SIDE PERFORMED: Right TECHNIQUE: The lower extremity deep venous system is examined utilizing real time linear array sonog lalito with graded compression, doppler sonography and color-flow sonography. VESSELS IMAGED: Common Femoral Vein Deep Femoral Vein Greater Saphenous Vein * Femoral Vein Popliteal Vein Small Saphenous Vein * Proximal Calf Veins (* superficial vessels) FINDINGS: Right lower extremity: Limited due to edema. No direct or indirect evidence of filling defects in ve ins imaged at this time. Limited visibility of prox calf veins. IMPRESSION: Negative for DVT, right lower extremity.
[2020-09-22] MEDS: METOPROLOL TARTRATE 12.5 MG TAB PO SCH (23:58)
[2020-09-23 06:07] LABS: Basophils # (A) 0.1 k/uL (0-0.2); Basophils % (A) 1 %; Eosinophils # (A) 0.3 k/uL (0-0.7); Eosinophils % (A) 4 %; HCT 34.6 % (39.0-53.0); Lymphocytes # (A) 0.9 k/uL (1.0-4.8); Lymphocytes % (A) 11 %; MCH 30.8 pg (25.0-35.0); MCHC 34.6 g/dL (31.0-37.0); MCV 89.2 fL (80.0-100.0); Mean Platelet Volume 7.4; Monocytes # (A) 0.7 k/uL (0-1.0); Monocytes % (A) 8 %; Neutrophils # (A) 6.6 k/uL (1.3-7.7); Neutrophils % (A) 75 %; Platelet Count 148 k/uL (150-450); RBC 3.88 m/uL (4.30-5.90); RDW 13.7 % (11.5-15.5); WBC 8.7 k/uL (3.8-10.6)
[2020-09-23] MEDS: HEPARIN SOD,PORK IN 0.45% NACL 25,000 UNIT in 0.45% NACL 1 250ML.BAG IV SCH ×3 (06:09→22:24)
[2020-09-23 06:37] LABS: Partial Thromboplastin Time 58.2 sec (22.0-30.0); Prothrombin Time 10.5 sec (9.0-12.0)
[2020-09-23 06:44] LABS: Calcium 8.2 mg/dL (8.4-10.2); Potassium 3.9 mmol/L (3.5-5.1)
[2020-09-23] MEDS: ATORVASTATIN 40 MG TAB PO SCH (08:30)
[2020-09-23] MEDS: ASPIRIN 81 MG PO SCH (08:30)
[2020-09-23] MEDS: SENNOSIDES-DOCUSATE SODIUM 1 EACH TAB PO SCH ×2 (08:30→19:50)
[2020-09-23] MEDS: METOPROLOL TARTRATE 12.5 MG TAB PO SCH ×2 (08:30→19:50)
[2020-09-23] MEDS ORDERED: amLODIPine 10 MG TAB PO SCH (09:00)
--- NOTE | 2020-09-23 10:40 | ECHOF ---
Referral Reason:nstemi MEASUREMENTS -------- HEIGHT: 157.5 cm WEIGHT: 134.7 kg BP: RVIDd: 3.4 cm (< 3.3) IVSd: 1.3 cm (0.6 - 1.1) LVIDd: 4.8 cm (3.9 - 5.3) LVPWd: 1.8 cm (0.6 - 1.1) IVSs: 1.6 cm LVIDs: 4.0 cm LVPWs: 1.5 cm LA Diam: 3.9 cm (2.7 - 3.8) Ao Diam: 3.8 cm (2.0 - 3.7) AV Cusp: 2.1 cm (1.5 - 2.6) MV EXCURSION: 22.213 mm (> 18.000) MV EF SLOPE: 106 mm/s (70 - 150) EPSS: 0.7 cm MV E Riley: 0.77 m/s MV DecT: 159 ms MV A Riley: 0.83 m/s MV E/A Ratio: 0.92 AR PHT: 730 ms RAP: 5.00 mmHg RVSP: 36.29 mmHg FINDINGS -------- Sinus rhythm. This was a technically difficult study with suboptimal views. Morbid Obesity The left ventricular size is normal. There is mild concentric left ventricular hypertrophy. Overa ll left ventricular systolic function is mild-moderately impaired with, an EF between 40 - 45 %. Ba hitesh inferior LV wall motion is hypokinetic. Basal inferoseptal LV wall motion is hypokinetic. M id inferior LV wall motion is hypokinetic. Mid inferoseptal LV wall motion is hypokinetic. Apic al inferior LV wall motion is hypokinetic. The right ventricle is normal in size. The left atrial size is normal. The right atrial size is normal. There is mild aortic valve sclerosis. There is mild aortic regurgitation. The mitral valve leaflets are mildly thickened. Moderate mitral regurgitation is present. Mild tricuspid regurgitation present. There is mild pulmonary hypertension. The right ventricular systolic pressure, as measured by Doppler, is 36.29mmHg. Trace/mild (physiologic) pulmonic regurgitation. The aortic root size is normal. There is no pericardial effusion. CONCLUSIONS -------- 1. This was a technically difficult study with suboptimal views. 2. Morbid Obesity 3. There is mild concentric left ventricular hypertrophy. 4. Overall left ventricular systolic function is mild-moderately impaired with, an EF between 40 - 45 %. 5. Basal inferior LV wall motion is hypokinetic. 6. Basal inferoseptal LV wall motion is hypokinetic. 7. Mid inferior LV wall motion is hypokinetic. 8. Mid inferoseptal LV wall motion is hypokinetic. 9. Apical inferior LV wall motion is hypokinetic. 10. The left atrial size is normal. 11. There is mild aortic valve sclerosis. 12. There is mild aortic regurgitation. 13. Moderate mitral regurgitation is present. 14. Mild tricuspid regurgitation present. 15. There is mild pulmonary hypertension. 16. Trace/mild (physiologic) pulmonic regurgitation. 17. There is no pericardial effusion. [employer]: Shani Gallegos RDCS
[2020-09-23] MEDS ORDERED: SODIUM CHLORIDE 0.9% 1,000 ML in EMPTY BAG 1 BAG IV ONE (11:06)
[2020-09-23] MEDS ORDERED: ALPRAZolam 0.5 MG TAB PO PRN (11:06)
[2020-09-23] MEDS ORDERED: NITROGLYCERIN SL TABS 0.4 MG TAB SUBLINGUAL PRN ×2 (11:06→20:42)
[2020-09-23] MEDS ORDERED: ALPRAZolam 0.25 MG TAB PO PRN (11:06)
[2020-09-23] MEDS ORDERED: IV FLUID CONTINUATION 150 ML IV ONE (13:10)
[2020-09-23] MEDS ORDERED: MIDAZOLAM 2 MG/2 ML VIAL IVP ONE (13:12)
[2020-09-23] MEDS ORDERED: fentaNYL (PF) 50 MCG/ML 2 ML AMP IVP ONE (13:13)
[2020-09-23] MEDS ORDERED: LIDOCAINE 1% INJ 10MG/ML (20 ML MDV) SQ ONE (13:14)
[2020-09-23] MEDS: HEPARIN SODIUM 1,000 UN/ML (10ML VL) IV ONE ×3 (13:43→14:10)
[2020-09-23] MEDS ORDERED: TICAGRELOR 90 MG TAB PO ONE (13:53)
[2020-09-23] MEDS ORDERED: SODIUM CHLORIDE 0.9% 1,000 ML IV ONE (13:55)
[2020-09-23] MEDS ORDERED: IOPAMIDOL-370 125ML BTL INJ ONE (13:58)
[2020-09-23] MEDS ORDERED: NITROGLYCERIN 1000MCG/10ML SYRINGE INTRACORON ONE (14:01)
[2020-09-23] MEDS: niCARdipine Syringe (1,000 mcg/10 mL) INTRACORON ONE ×4 (14:04→14:07)
[2020-09-23] MEDS ORDERED: HEPARIN SODIUM 1,000 UN/ML (10ML VL) IV ONE (14:32)
--- NOTE | 2020-09-23 14:33 | P.CRDCN ---
History of Present Illness History of present illness: HISTORY OF PRESENTING ILLNESS This is a pleasant 69-year-old male past medical history significant for hypterension, dyslipidemia, valvular heart disease, abdominal aortic aneurysm s/p repair. He follows in the office with Dr. Tang. We have been asked to see in consultation for elevated troponin. Patient presents to the emergency department from home for low O2 saturations. Patient is status post total knee replacement on the right on Saturday by Dr. Almeida. He had the home physical therapy come to his house yesterday to start PT. They found his pulse ox to be in the 60s. They did call and notify Dr. Menendez who recommended that he come into the emergency room in for evaluation. Patient states he has been having exertional shortness of breath, feels as if he needs to sit down and catch his breath. He denies chest pain, palpitations, any chest discomfort, symptoms of orthopnea or PND, dizziness, lightheadedness or symptoms of syncope. He is a non-diabetic, he does not smoke, denies alcohol use. Denies family history of cardiac disease. Denies history of NE, stroke. Echocardiogram today revealed an EF of 40-45%, with LV hypokinetic, mild , mild AR, moderate mitral reguritation DIAGNOSTICS Echo 05/2020- EF 50%, moderate AI, ascending aorta enlarged 3.7cm, mild to moder ate MR, mild TR Lexiscan Stresstest 05/2020- negative for reversible ischemia EKG reveals sinus rhythm with first degree AV block Telemetry tracings indicate sinus mechanism HR 60-70s. Chest xray suspect mild interstitial pulmonary edema CT chest negative for PE US negative for DVT Laboratory reviewed, troponin 2.1, 2.9, 3.3- sodium 136, potassium 3.9, serum creatinine 1.1 hemoglobin 12, platelets 148, COVID-19 negative Current home cardiac medications include amlodipine 10 mg daily, metoprolol succinate 25 mg daily, Lasix 20 mg daily, hydralazine 100 mg 3 times a day, atorvastatin 40 mg daily, aspirin 81 mg daily REVIEW OF SYSTEMS At the time of my exam: CONSTITUTIONAL: Denies fever or chills. CARDIOVASCULAR: Positive shortness of breath Denies chest pain, orthopnea, PND or palpitations. RESPIRATORY: Denies cough. GASTROINTESTINAL: Denies abdominal pain, diarrhea, constipation, nausea or vomiting. MUSCULOSKELETAL: Denies myalgias. NEUROLOGIC: Denies numbness, tingling, headacbe or weakness. ENDOCRINE: Denies fatigue, weight change, polydipsia or polyurina. GENITOURINARY: Denies burning, hematuria or urgency with micturation. HEMATOLOGIC: Denies history of anemia or bleeding. PHYSICAL EXAMINATION Blood pressur 108/66 heart rate 69 afebrile and maintaining oxygen saturation on nasal cannula CONSTITUTIONAL: No apparent distress. HEENT: Head is normocephalic. Pupils are equal, round. Sclerae anicteric. Mucous membranes of the mouth are moist. No JVD. No carotid bruit. CHEST EXAMINATION: Lungs are clear to auscultation. No chest wall tenderness is noted on palpation or with deep breathing. HEART EXAMINATION: Regular rate and rhythm. S1, S2 heard. Soft diastolic murmur heard, gallops or rub. ABDOMEN: Soft, nontender. Positive bowel sounds. EXTREMITIES: 2+ peripheral pulses, mild bilateral lower extremity edema and no calf tenderness. NEUROLOGIC EXAMINATION: Patient is awake, alert and oriented x3. ASSESSMENT Acute hypoxia Elevated troponin, with new echocardiogram results concerning for acute coronary syndrome. Hypertension Dyslipidemia Moderate aortic regurgitation Mild to moderate mitral regurgitation PLAN Will perform cardiac catheterization today with Dr. Huerta I have discussed the risks, benefits and alternative therapies for the above-me ntioned procedure and for both sedation/analgesia as well as necessary blood product administration, if indicated, as they pertain to this patient. The patient has indicated understanding and acceptance of the risks and procedures discussed. Questions have been answered appropriately and he is agreeable to move forward with the above-stated procedure. Continue aspirin, statin, beta ramesh Start Lasix 40 mg twice a day Start lisinopril 2.5 mg daily Further recommendations based on clinical course. Nurse Practitioner note has been reviewed, I agree with a documented findings and plan of care. Patient was seen and examined. Past Medical History Past Medical History: GERD/Reflux, Hyperlipidemia, Hypertension, Osteoarthritis (OA) History of Any Multi-Drug Resistant Organisms: None Reported Past Surgical History: Hernia Repair, Joint Replacement, Orthopedic Surgery, Tonsillectomy Additional Past Surgical History / Comment(s): rotator cuff Right x2, rt shoulder replacement, groin and abdomen hernias, benign growth on thyroid, AAA repair, left knee replaced, right knee replaced 09/19/20 Past Anesthesia/Blood Transfusion Reactions: No Reported Reaction Past Psychological History: No Psychological Hx Reported Smoking Status: Never smoker Past Alcohol Use History: None Reported Past Drug Use History: None Reported - Past Family History Mother Family Medical History: No Reported History Medications and Allergies Home Medications Medication Instructions Recorded Confirmed Type amLODIPine BESYLATE [Norvasc] 10 mg PO DAILY 11/20/17 09/22/20 History hydrALAZINE HCL [Apresoline] 100 mg PO TID 11/20/17 09/22/20 History Aspirin [Adult Low Dose Aspirin EC] 81 mg PO DAILY 06/15/19 09/22/20 History Atorvastatin [Lipitor] 40 mg PO DAILY 06/15/19 09/22/20 History Furosemide [Lasix] 20 mg PO DAILY 06/15/19 09/22/20 History minoxidiL [Minoxidil] 2.5 mg PO DAILY 06/15/19 09/22/20 History Ergocalciferol (Vitamin D2) 2,500 mcg PO Q30D 09/13/20 09/22/20 History [Vitamin D2 (50,000 Iu)] Metoprolol Succinate (ER) [Toprol 25 mg PO DAILY 09/13/20 09/22/20 History Xl] HYDROcodone/APAP 7.5-325MG [[place] 1 - 2 tab PO Q6HR PRN #42 tab 09/19/20 09/22/20 Rx 7.5-325] Meloxicam [Mobic] 1 - 2 tab PO DAILY PRN #60 tab 09/19/20 09/22/20 Rx Ondansetron Odt [Zofran Odt] 4 mg PO Q8HR PRN #14 tab 09/19/20 09/22/20 Rx Sennosides-Docusate Sodium 1 tab PO BID #60 tablet 09/19/20 09/22/20 Rx [Senokot-S] Gabapentin [Neurontin] 300 mg PO BID PRN 09/22/20 09/22/20 History Allergies Allergy/AdvReac Type Severity Reaction Status Date / Time latex Allergy Rash/Hives Verified 09/22/20 19:42 Physical Exam Vitals: Vital Signs Temp Pulse Pulse Resp BP BP Pulse Ox 09/23/20 04:01 20 92 L 09/23/20 03:58 98.1 F 69 20 108/66 85 L 09/23/20 00:00 97.6 F 76 20 118/72 98 09/22/20 22:14 75 18 126/83 94 L 09/22/20 20:08 74 16 101/61 94 L 09/22/20 17:08 98.9 F 105 H 20 139/86 87 L Intake and Output 09/22/20 09/23/20 09/23/20 22:59 06:59 14:59 Intake Total 452.607 Output Total 350 Balance 102.607 Intake: Intake, IV Titration 212.607 Amount Heparin Sod,Pork in 0.45% 212.607 NaCl 25,000 unit In 0.45 % NaCl 1 250ml.bag @ 18 UNITS/KG/HR 22.861 mls/hr IV .[id number] [facility] Rx#: [id number] Oral 240 Output: Urine 350 Other: Voiding Method Urinal # Voids 1 Weight 127.006 kg 133 kg Results 09/23/20 05:38 09/23/20 05:38 Cardiac Enzymes 09/22/20 09/22/20 09/22/20 Range/Units 18:12 18:12 20:46 AST 53 (17-59) U/L Troponin I 2.120 H* 2.900 H* (0.000-0.034) ng/mL 09/23/20 Range/Units 00:41 AST (17-59) U/L Troponin I 3.310 H* (0.000-0.034) ng/mL Coagulation 09/22/20 09/23/20 09/23/20 Range/Units 18:12 01:30 05:38 PT 10.2 10.5 (9.0-12.0) sec APTT 22.5 51.4 H 58.2 H (22.0-30.0) sec CBC 09/22/20 09/23/20 Range/Units 18:12 05:38 WBC 10.0 8.7 (3.8-10.6) k/uL RBC 4.23 L 3.88 L (4.30-5.90) m/uL Hgb 13.2 12.0 L (13.0-17.5) gm/dL Hct 37.4 L 34.6 L (39.0-53.0) % Plt Count 161 148 L (150-450) k/uL Comprehensive Metabolic Panel 09/22/20 09/23/20 Range/Units 18:12 05:38 Sodium 134 L 136 L (137-145) mmol/L Potassium 4.1 3.9 (3.5-5.1) mmol/L Chloride 98 98 (98-107) mmol/L Carbon Dioxide 32 H 32 H (22-30) mmol/L BUN 31 H 31 H (9-20) mg/dL Creatinine 1.13 1.11 (0.66-1.25) mg/dL Glucose 153 H 134 H (74-99) mg/dL Calcium 8.6 8.2 L (8.4-10.2) mg/dL AST 53 (17-59) U/L ALT 15 (4-49) U/L Alkaline Phosphatase 69 (38-126) U/L Total Protein 5.7 L (6.3-8.2) g/dL Albumin 3.4 L (3.5-5.0) g/dL Current Medications Generic Name Dose Route Start Last Admin Trade Name Freq PRN Reason Stop Dose Admin Hydrocodone Bitart/Acetaminophen 1 each 09/22/20 21:04 Hydrocodone/Apap 7.5-325mg 1 Each Tab PO Q6HR PRN Pain Amlodipine Besylate 10 mg 09/23/20 09:00 Amlodipine 10 Mg Tab PO DAILY [facility] Aspirin 81 mg 09/23/20 09:00 Aspirin 81 Mg PO DAILY [facility] Atorvastatin Calcium 40 mg 09/23/20 09:00 Atorvastatin 40 Mg Tab PO DAILY [facility] Gabapentin 300 mg 09/22/20 21:04 Gabapentin 300 Mg Cap PO BID PRN Pain Heparin Sodium (Porcine) 0 unit 09/22/20 20:07 Heparin Sodium 1,000 Un/Ml (10ml Vl) IV PER PROTOCOL PRN Low PTT Protocol Heparin Sodium/Sodium Chloride 250 mls @ 22.861 mls/hr 09/22/20 20:15 09/23 06:09 25,000 unit/ Sodium Chloride IV 18 units/kg/hr .[id number] SHIVAM 22.861 mls/hr Administration Protocol 18 UNITS/KG/HR Metoprolol Tartrate 12.5 mg 09/22/20 23:00 09/22/20 23:58 Metoprolol Tartrate 12.5 Mg Tab PO 12.5 mg BID [facility] Administration Naloxone HCl 0.2 mg 09/22/20 20:16 Naloxone 0.4 Mg/Ml 1 Ml Vial IV Q2M PRN Opioid Reversal Senna/Docusate Sodium 1 each 09/23/20 09:00 Sennosides-Docusate Sodium 1 Each Tab PO BID [facility] Intake and Output 09/22/20 09/23/20 09/23/20 22:59 06:59 14:59 Intake Total 452.607 Output Total 350 Balance 102.607 Intake: Intake, IV Titration 212.607 Amount Heparin Sod,Pork in 0.45% 212.607 NaCl 25,000 unit In 0.45 % NaCl 1 250ml.bag @ 18 UNITS/KG/HR 22.861 mls/hr IV .[id number] [facility] Rx#: [id number] Oral 240 Output: Urine 350 Other: Voiding Method Urinal # Voids 1 Weight 127.006 kg 133 kg 09/23/20 05:38 09/23/20 05:38
[2020-09-23] MEDS ORDERED: IOPAMIDOL-370 100ML BTL INJ ONE (14:47)
[2020-09-23] MEDS: FUROSEMIDE 10 MG/ML 4 ML VIAL IV SCH ×2 (16:44→19:50)
--- NOTE | 2020-09-23 16:48 | P.CARDCATH ---
Date of Procedure: 09/23/20 Preoperative Diagnosis: Non-STEMI with abnormal echo findings and CHF Postoperative Diagnosis: Triple-vessel coronary artery disease Procedure(s) Performed: Left heart catheterization with selective coronary arteriography, without left ventriculography Description of Procedure: HISTORY: This is a 69-year-old gentleman with history of stenting of the abdominal aortic aneurysm who recently underwent right knee surgery. Postoper atively patient was recuperating at home. Apparently experiencing exertional shortness of breath. Did not expense any chest pain. However, visiting nurses found the patient is oxygen saturations are low. He was brought in to the emergency room. His oxygen saturation low and required oxygen supplementation. His lab work showed abnormal troponin consistent with non-ST myocardial infarction. Echo Cardigan showed segmental wall motion defects with hypokinesis of the inferior booth and lateral wall. Patient is advised to have a cardiac catheterization for definitive diagnosis CONSENT:I have discussed the risks, benefits and alternative therapies for the above-mentioned procedure and for both sedation/analgesia as well as necessary blood product administration, if indicated, as they pertain to this patient. The patient has indicated understanding and acceptance of the risks and procedures discussed. PROCEDURE: Patient was brought to the lab in a fasting state. Patient was given some IV sedation. The right groin is infiltrated with lidocaine and right femoral artery was entered using Seldinger technique. A 6-Serbian catheter was left in place and selective coronary arteriography and left ventriculography was performed. Patient tolerated the procedure well. Femoral angiogram was performed and Angio-Seal was applied for hemostasis. No immediate complications were noted and patient was transferred to [facility] in a stable condition Conscious Sedation: Versed 1mg Fentanyl 50 g Duration 20minutes HEMODYNAMICS: The aortic pressure is about 110/70. Left ankle end-diastolic pressure is about 15. No gradient across the aortic valve SELECTIVE CORONARY ARTERIOGRAPHY: LEFT MAIN: Normal length and free of occlusive disease THE LEFT ANTERIOR DESCENDING CORONARY ARTERY:. This is a fair caliber vessel giving rise good-sized diagonal branch. The diagonal branch is about 70% stenosis. The LAD has about 60-70% stenosis in midportion THE LEFT CIRCUMFLEX AND IS CORONARY ARTERY:. This is a good caliber vessel with about 90% stenosis in the proximal portion THE RIGHT CORONARY ARTERY:. This a good caliber vessel with an eccentric ulcerated lesion in the midportion which is critical. Beyond that the vessel is free of occlusive disease LEFT VENTRICULOGRAPHY:. Not performed FINAL IMPRESSION:. Triple-vessel disease with critical lesions in the circumflex and right coronary artery. The lesions in the diagonal appears to be significant and the LAD lesion appears to be borderline PLAN: Proceed with stent placement of the circumflex and right coronary artery. Status stenting of the LAD and diagonal to be considered. If necessary PROGNOSIS: Guarded
[2020-09-23] MEDS ORDERED: ATROPINE SULFATE 0.1 MG/ML 10ML SYRINGE ONE (17:49)
--- NOTE | 2020-09-23 19:38 | HP ---
HISTORY AND PHYSICAL CHIEF COMPLAINT: Low pulse ox. HISTORY OF PRESENT ILLNESS: This is another recent admission for this 69-year-old white male. He recently had a knee replacement. He had no problems in the hospital or after he went home. On the day of his readmission physical therapist was at the house and checked his pulse ox and it was around 60 or 63. They called the office and I returned the call and talked to the patient. He had no shortness of breath, fever, chills, pleuritic pain, hemoptysis, etc. It was felt that this could have been an errant reading. However, he was directed to the emergency room, where he was found to have a low pulse ox and in addition had an elevated D-dimer and BNP. His CTA did not demonstrate any pulmonary emboli. He has had no chest pain. He was admitted with a diagnosis of congestive heart failure. He has a prior history of being overweight and having hypertension as well as diabetes. He has never had any heart problems. REVIEW OF SYSTEMS: He has had no syncope, confusion, abdominal pain, nausea, vomiting, melena, hematochezia, jaundice, hematuria, frequency, urgency, dysuria, etc. Past medical history, family history, and personal and social histories are all unremarkable and unchanged from his recent admitting and discharge summaries. He has been anticoagulated. PHYSICAL EXAMINATION: Blood pressure is 132/86 with a pulse of 81, respirations of 32, and he is afebrile. In general he appeared to be in no acute distress. Skin color is normal. Skin is warm and dry. Lymph nodes are not enlarged. Head, ears, eyes, nose, mouth and throat are normal. Neck veins are not distended. Thyroid is not enlarged. Chest is clear. There are no rales. Cardiac exam demonstrates sinus rhythm and no murmurs or extra sounds. Abdomen is soft and protuberant. Extremities are normal. There is no calf pain or tenderness. Homans is negative. Neurologically he is intact. He is admitted to the hospital with the diagnoses: 1. Congestive heart failure. 2. Recent knee replacement. 3. History of hypertension. 4. Obesity. 5. History of type 2 [id number] diabetes mellitus. PLAN: 1. Bedrest. 2. IV fluids. 3. Diuresis. 4. Serial EKGs and troponins. 5. Cardiology consult. MMODL / IJN: [id number] /
--- NOTE | 2020-09-23 19:38 | PN ---
PROGRESS NOTE DATE OF SERVICE: 09/23/2020 CHIEF COMPLAINT: Shortness of breath and elevated troponin as well as BNP. HISTORY OF PRESENT ILLNESS: This gentleman feels fine. He has had no pain, shortness of breath, etc. PHYSICAL EXAMINATION: Chest is clear. Cardiac exam is normal. Abdomen is soft, nontender. IMPRESSION: 1. Congestive heart failure. 2. Elevated troponin. 3. Possible mgt-PR-nuivbaun myocardial infarction. PLAN: Wait for assistance from Cardiology. MMODL / IJN: [id number] /
[2020-09-23] MEDS ORDERED: ZOLPIDEM 5 MG TAB PO PRN (20:42)
[2020-09-23] MEDS ORDERED: ATROPINE SULFATE 0.1 MG/ML 10ML SYRINGE IV PRN (20:42)
[2020-09-23] MEDS ORDERED: MAG HYDROX/AL HYDROX/SIMETH 30 ML CUP PO PRN (20:42)
[2020-09-23] MEDS ORDERED: RX INFO: IV CONTRAST WAS GIVEN 1 EACH MISC MISCELLANE PRN (20:42)
[2020-09-23] MEDS: SODIUM CHLORIDE 0.9% 1,000 ML IV SCH (20:52)
--- NOTE | 2020-09-23 20:53 | P.PRCINT ---
Percutaneous Coronary Int. - Percutaneous Coronary Intervention Percutaneous Coronary Intervention: PROCEDURES PERFORMED: Bilateral coronary angiography, PCI of mid RCA with a 4.0 x 28mm Xience ARIELLE, wiring of circumflex INDICATION: NSTEMI HISTORY: Patient is a pleasant 69-year-old male past medical history signific ant for hypterension, dyslipidemia, valvular heart disease, abdominal aortic aneurysm s/p repair. He follows in the office with Dr. Tang. Patient is status post total knee replacement on the right on Saturday. Patient's pulse ox was found to be in the 60s by physical therapy. Patient has been having exertional shortness of breath, feels as if he needs to sit down and catch his breath. He denied and chest pain however troponins were elevated and therefore recommended to have LHC. LHC showed obstructive disease of the RCA and circumflex and intermediate lesions in the diagonal and mid LAD and therefore was recommended to undergo PCI. PROCEDURE: After the risks, benefits and alternatives of the above mentioned procedure explained in detail with the patient, informed consent was obtained. Patient had been taken to the catheterization lab and prepped and draped in usual fashion. A 6-Rwandan sheath had already been placed in the right femoral artery. The decision was made to first intervene on the RCA. The RCA was engaged with a 6-[place] AL 0.75 guide. Heparin was given for ACT greater than 250. A 0.014 BMW wire was advanced into the distal RCA. Balloon angioplasty was performed with a 3.5 x 15 mm balloon. A 4.0 x 28 mm Xience drug-eluting stent was placed to the mid RCA. There was no reflow noted and this improved quickly with nicardipine intracoronary. Per intervention there was 85% mid RCA stenosis with LENCHO 3 flow and post intervention there was 0% stenosis with LENCHO 3 flow and no dissection. Next ACLS 3.5 guide was used to engage the left main. The circumflex came off at approximately 120 angle with some difficulty engaging the circumflex. Therefore a guideline or with a microcatheter was used. Patient was nearing his contrast limit with intervention appearing more difficult than initially anticipated and therefore further wiring of circumflex lesion was deferred. A right femoral angiogram had been performed and did not show anatomy for closure. Patient tolerated the procedure well and was transferred to the post cath holding area in stable condition. Conscious Sedation: Patient was monitored under the direct supervision of vision of myself for conscious sedation using Versed and fentanyl for a total duration of 53 minutes HEMODYNAMICS: Ao 143/78 SELECTIVE CORONARY ARTERIOGRAPHY: LEFT MAIN: The left main is a large caliber vessel which bifurcates into the LAD and circumflex. There is no significant stenosis. LEFT ANTERIOR DESCENDING CORONARY ARTERY: LAD is a large caliber vessel which wraps around to the apex. There is a mid LAD 60-70% and a diagonal 70% stenosis. LEFT CIRCUMFLEX CORONARY ARTERY: Left circumflex is a moderate caliber vessel with acute angle and has a 90% mid circumflex stenosis. RIGHT CORONARY ARTERY: The right coronary artery is a large caliber vessel which gives off a PDA and PLV branch and is the dominant vessel. There a mid RCA 85% stenosis. FINAL IMPRESSION: 1. CAD as described above including 85% RCA, 90% circumflex, 60-70% mid LAD and 70% diagonal stenosis 2. S/p PCI of mid RCA with a 4.0 x 28mm Xience ARIELLE PLAN: 1. Aggressive risk factor modification per most recent ACC/AHA guidelines. 2. Continue dual antiplatelets for 12 months. 3. Recommend staged PCI of circumflex and possibly diagonal branch.
[2020-09-23] MEDS: TICAGRELOR 90 MG TAB PO SCH (20:54)
[2020-09-24 06:00] LABS: Basophils % (A) 0 %; Eosinophils # (A) 0.3 k/uL (0-0.7); Eosinophils % (A) 4 %; HCT 33.9 % (39.0-53.0); HGB 11.8 gm/dL (13.0-17.5); Lymphocytes # (A) 0.7 k/uL (1.0-4.8); Lymphocytes % (A) 10 %; MCH 30.3 pg (25.0-35.0); MCHC 34.7 g/dL (31.0-37.0); MCV 87.2 fL (80.0-100.0); Monocytes # (A) 0.6 k/uL (0-1.0); Monocytes % (A) 8 %; Neutrophils # (A) 5.5 k/uL (1.3-7.7); Neutrophils % (A) 77 %; Platelet Count 186 k/uL (150-450); RBC 3.88 m/uL (4.30-5.90); RDW 13.8 % (11.5-15.5); WBC 7.1 k/uL (3.8-10.6)
[2020-09-24 06:51] LABS: African American GFR (CKD) >90 (>60 ml/min/1.73 sqM); Anion Gap 3 mmol/L; Blood Urea Nitrogen 22 mg/dL (9-20); Calcium 7.8 mg/dL (8.4-10.2); Carbon Dioxide 31 mmol/L (22-30); Chloride 102 mmol/L (98-107); Glucose 123 mg/dL (74-99); Non-African American GFR(CKD) >90 (>60 ml/min/1.73 sqM); Potassium 3.6 mmol/L (3.5-5.1); Sodium 136 mmol/L (137-145)
[2020-09-24] MEDS ORDERED: HEPARIN SODIUM,PORCINE 2,500 UNIT in SODIUM CHLORIDE 0.9% 250 ML IRRIGATION PRN (07:00)
[2020-09-24] MEDS ORDERED: HEPARIN SODIUM,PORCINE 10,000 UNIT in SODIUM CHLORIDE 0.9% 1,000 ML IRRIGATION PRN (07:00)
[2020-09-24] MEDS: SENNOSIDES-DOCUSATE SODIUM 1 EACH TAB PO SCH ×2 (09:33→19:56)
[2020-09-24] MEDS: ASPIRIN 81 MG PO SCH (09:33)
[2020-09-24] MEDS: FUROSEMIDE 10 MG/ML 4 ML VIAL IV SCH ×2 (09:33→19:56)
[2020-09-24] MEDS: METOPROLOL TARTRATE 12.5 MG TAB PO SCH ×2 (09:33→19:56)
[2020-09-24] MEDS: TICAGRELOR 90 MG TAB PO SCH ×2 (09:34→19:56)
[2020-09-24] MEDS: ATORVASTATIN 40 MG TAB PO SCH (09:34)
[2020-09-24] MEDS: HEPARIN SOD,PORK IN 0.45% NACL 25,000 UNIT in 0.45% NACL 1 250ML.BAG IV SCH ×2 (09:36→19:57)
--- NOTE | 2020-09-24 13:48 | P.PN ---
Subjective Progress Note Date: 09/24/20 HISTORY OF PRESENTING ILLNESS This is a pleasant 69-year-old male past medical history significant for hyp terension, dyslipidemia, valvular heart disease, abdominal aortic aneurysm s/p repair. He follows in the office with Dr. Tang. We have been asked to see in consultation for elevated troponin. Patient presents to the emergency department from home for low O2 saturations. Patient is status post total knee replacement on the right on Saturday by Dr. Almeida. He had the home physical therapy come to his house yesterday to start PT. They found his pulse ox to be in the 60s. They did call and notify Dr. Menendez who recommended that he come into the emergency room in for evaluation. Patient states he has been having exertional shortness of breath, feels as if he needs to sit down and catch his breath. He denies chest pain, palpitations, any chest discomfort, symptoms of orthopnea or PND, dizziness, lightheadedness or symptoms of syncope. He is a non-diabetic, he does not smoke, denies alcohol use. Denies family history of cardiac disease. Denies history of [place], stroke. Echocardiogram today revealed an EF of 40-45%, with LV hypokinetic, mild , mild AR, moderate mitral reguritation DIAGNOSTICS Echo 05/2020- EF 50%, moderate AI, ascending aorta enlarged 3.7cm, mild to moderate MR, mild TR Lexiscan Stresstest 05/2020- negative for reversible ischemia EKG reveals sinus rhythm with first degree AV block Telemetry tracings indicate sinus mechanism HR 60-70s. Chest xray suspect mild interstitial pulmonary edema CT chest negative for PE US negative for DVT Laboratory reviewed, troponin 2.1, 2.9, 3.3- sodium 136, potassium 3.9, serum creatinine 1.1 hemoglobin 12, platelets 148, COVID-19 negative Current home cardiac medications include amlodipine 10 mg daily, metoprolol succinate 25 mg daily, Lasix 20 mg daily, hydralazine 100 mg 3 times a day, atorvastatin 40 mg daily, aspirin 81 mg daily 09/24: Yesterday, patient underwent heart catheterization which revealed triple vessel coronary artery disease with critical lesions in the circumflex and right coronary artery. Lesions in the diagonal appear to be significant and the LAD lesion appears to be borderline. Patient subsequently underwent PCI of the mid RCA. Patient has been started on Brilinta and continued on Lopressor, l isinopril 2.5 mg daily, Lasix 40 mg IV every 12 hours, aspirin 81 mg daily and Lipitor 40 mg daily. PHYSICAL EXAMINATION Afebrile, heart rate 77, blood pressure 163/78, pulse ox 97% on 6 L nasal paola gladis CONSTITUTIONAL: No apparent distress. HEENT: Head is normocephalic. Pupils are equal, round. Sclerae anicteric. Mucous membranes of the mouth are moist. No JVD. No carotid bruit. CHEST EXAMINATION: Lungs are clear to auscultation. No chest wall tenderness is noted on palpation or with deep breathing. HEART EXAMINATION: Regular rate and rhythm. S1, S2 heard. Soft diastolic murmur heard, gallops or rub. ABDOMEN: Soft, nontender. Positive bowel sounds. EXTREMITIES: 2+ peripheral pulses, mild bilateral lower extremity edema and no calf tenderness. NEUROLOGIC EXAMINATION: Patient is awake, alert and oriented x3. ASSESSMENT Acute hypoxia Elevated troponin, with new echocardiogram results concerning for acute coronary syndrome. Hypertension Dyslipidemia Moderate aortic regurgitation Mild to moderate mitral regurgitation PLAN Continue aspirin, statin, beta ramesh, lisinopril Continue Lasix 40 mg IV twice a day Patient has been started on Brilinta Further recommendations based on clinical course. Nurse Practitioner note has been reviewed, I agree with a documented findings and plan of care. Patient was seen and examined. Objective - Vital Signs Vital signs: Vital Signs Temp 97.8 F 09/24/20 09:30 Pulse 77 09/24/20 09:30 Resp 20 09/24/20 09:30 BP 163/78 09/24/20 09:30 Pulse Ox 97 09/24/20 09:30 Intake & Output 09/23/20 09/24/20 09/24/20 18:59 06:59 18:59 Intake Total 525 420.602 67.059 Output Total 1500 3025 Balance -975 -0100.398 67.059 Weight 134.5 kg Intake: IV 275 Intake, IV Titration 250 180.602 67.059 Amount Heparin Sod,Pork in 0.45% 250 180.602 67.059 NaCl 25,000 unit In 0.45 % NaCl 1 250ml.bag @ 18 UNITS/KG/HR 22.861 mls/hr IV .[id number] [facility] Rx#: [id number] Oral 240 0 Output: Urine 1500 3025 Other: Voiding Method Urinal Indwelling Catheter # Bowel Movements 1 - Labs CBC & Chem 7: 09/24/20 05:24 09/24/20 05:24 Labs: Abnormal Lab Results - Last 24 Hours (Table) 09/24/20 09/24/20 09/24/20 Range/Units 05:24 05:24 05:24 RBC 3.88 L (4.30-5.90) m/uL Hgb 11.8 L (13.0-17.5) gm/dL Hct 33.9 L (39.0-53.0) % Lymphocytes # 0.7 L (1.0-4.8) k/uL APTT 67.9 H (22.0-30.0) sec Sodium 136 L (137-145) mmol/L Carbon Dioxide 31 H (22-30) mmol/L BUN 22 H (9-20) mg/dL Glucose 123 H (74-99) mg/dL Calcium 7.8 L (8.4-10.2) mg/dL
[2020-09-24] MEDS: SODIUM CHLORIDE 0.9% 1,000 ML IV SCH ×2 (18:41→22:41)
[2020-09-25] MEDS: HEPARIN SOD,PORK IN 0.45% NACL 25,000 UNIT in 0.45% NACL 1 250ML.BAG IV SCH ×2 (06:16→22:28)
[2020-09-25] MEDS: ATORVASTATIN 40 MG TAB PO SCH ×2 (08:08→18:41)
[2020-09-25] MEDS: TICAGRELOR 90 MG TAB PO SCH ×2 (08:08→21:17)
[2020-09-25] MEDS: METOPROLOL TARTRATE 12.5 MG TAB PO SCH ×2 (08:08→21:17)
[2020-09-25] MEDS: SENNOSIDES-DOCUSATE SODIUM 1 EACH TAB PO SCH ×2 (08:08→21:18)
[2020-09-25] MEDS: ASPIRIN 81 MG PO SCH ×2 (08:08→18:41)
[2020-09-25] MEDS: FUROSEMIDE 10 MG/ML 4 ML VIAL IV SCH ×2 (08:08→21:18)
[2020-09-25 08:32] LABS: Basophils % (A) 0 %; Eosinophils # (A) 0.2 k/uL (0-0.7); Eosinophils % (A) 3 %; HCT 36.8 % (39.0-53.0); HGB 12.9 gm/dL (13.0-17.5); Lymphocytes # (A) 0.6 k/uL (1.0-4.8); Lymphocytes % (A) 9 %; MCHC 34.9 g/dL (31.0-37.0); MCV 88.6 fL (80.0-100.0); Monocytes # (A) 0.5 k/uL (0-1.0); Monocytes % (A) 7 %; Neutrophils # (A) 5.4 k/uL (1.3-7.7); Neutrophils % (A) 79 %; Platelet Count 206 k/uL (150-450); RBC 4.15 m/uL (4.30-5.90); RDW 14.2 % (11.5-15.5); WBC 6.8 k/uL (3.8-10.6)
[2020-09-25 09:08] LABS: African American GFR (CKD) >90 (>60 ml/min/1.73 sqM); Anion Gap 6 mmol/L; Blood Urea Nitrogen 18 mg/dL (9-20); Calcium 8.3 mg/dL (8.4-10.2); Carbon Dioxide 33 mmol/L (22-30); Chloride 101 mmol/L (98-107); Glucose 131 mg/dL (74-99); Non-African American GFR(CKD) >90 (>60 ml/min/1.73 sqM); Potassium 3.3 mmol/L (3.5-5.1); Sodium 140 mmol/L (137-145)
[2020-09-25] MEDS: POTASSIUM CHLORIDE ER 20 MEQ TAB.ER PO SCH ×2 (17:35→21:17)
[2020-09-25] MEDS: SODIUM CHLORIDE 0.9% 1,000 ML IV SCH (17:36)
[2020-09-25] MEDS ORDERED: SODIUM CHLORIDE 0.9% 1,000 ML in EMPTY BAG 1 BAG IV ONE (18:36)
[2020-09-25] MEDS ORDERED: ALPRAZolam 0.5 MG TAB PO PRN (18:36)
[2020-09-25] MEDS ORDERED: NITROGLYCERIN SL TABS 0.4 MG TAB SUBLINGUAL PRN (18:36)
[2020-09-25] MEDS ORDERED: ALPRAZolam 0.25 MG TAB PO PRN (18:36)
--- NOTE | 2020-09-25 18:39 | P.PN ---
Subjective Progress Note Date: 09/25/20 This 69-year-old gentleman remains stable. Found to have triple-vessel disease. Had stent placement of the RCA. Being scheduled for stent placement of the circumflex by Dr. Juarez. Overall he is feeling slightly better. No complaints of chest pain or shortness of breath. The puncture site has healed well. Lungs are clear. Heart is regular. Further recommendation depending upon clinical course Objective - Vital Signs Vital signs: Vital Signs Temp 98.2 F 09/25/20 16:00 Pulse 65 09/25/20 16:00 Resp 16 09/25/20 16:00 BP 147/85 09/25/20 16:00 Pulse Ox 100 09/25/20 16:00 Intake & Output 09/24/20 09/25/20 09/25/20 18:59 06:59 18:59 Intake Total 468.183 223.189 3837.831 Output Total 650 1075 Balance -181.817 -767.126 2133.831 Weight 134.5 kg 130.9 kg Intake: Intake, IV Titration 138.183 348.844 469.831 Amount Heparin Sod,Pork in 0.45% 138.183 348.844 94.831 NaCl 25,000 unit In 0.45 % NaCl 1 250ml.bag @ 18 UNITS/KG/HR 22.861 mls/hr IV .[id number] [facility] Rx#: [id number] Sodium Chloride 0.9% 1, 375 000 ml @ 75 mls/hr IV . [id number] [facility] Rx#:[id number] Oral 330 240 720 Output: Urine 650 1075 Other: Voiding Method Indwelling Catheter Urinal Urinal # Voids 1 2 - Exam GENERAL EXAM: Patient is alert and oriented and doesn't appear to be in any acute distress HEENT: Normocephalic. Normal reaction of pupils, equal size, normal range of extraocular motion. No erythema or exudates in the throat. NECK: No masses, no nuchal rigidity. CHEST: No chest wall deformity. LUNGS: Equal air entry with no crackles or wheeze. HEART: S1 and S2 normal with no audible mumurs or gallops. Regular rhythm, femorals equal on both sides.. ABDOMEN: No hepatosplenomegaly, normal bowel sounds, no guarding or rigidity. SKIN: No rashes CENTRAL NERVOUS SYSTEM: No focal deficits. EXTREMITIES: No cyanosis, clubbing or edema. - Labs CBC & Chem 7: 09/25/20 07:24 09/25/20 07:24 Labs: Abnormal Lab Results - Last 24 Hours (Table) 09/25/20 09/25/20 09/25/20 Range/Units 07:24 07:24 07:24 RBC 4.15 L (4.30-5.90) m/uL Hgb 12.9 L (13.0-17.5) gm/dL Hct 36.8 L (39.0-53.0) % Lymphocytes # 0.6 L (1.0-4.8) k/uL APTT 73.5 H (22.0-30.0) sec Potassium 3.3 L (3.5-5.1) mmol/L Carbon Dioxide 33 H (22-30) mmol/L Glucose 131 H (74-99) mg/dL Calcium 8.3 L (8.4-10.2) mg/dL Assessment and Plan (1) Triple vessel coronary artery disease Current Visit: Yes Status: Acute Code(s): I25.10 - ATHSCL HEART DISEASE OF [place] CORONARY ARTERY W/O ANG PCTRS SNOMED Code(s): 746590005 (2) NSTEMI (non-ST elevated myocardial infarction) Current Visit: Yes Status: Acute Code(s): I21.4 - NON-ST ELEVATION (NSTEMI) MYOCARDIAL INFARCTION SNOMED Code(s): 90097013 Plan: Patient is scheduled for stent placement of circumflex tomorrow.
[2020-09-26] MEDS ORDERED: ATORVASTATIN 80 MG TAB PO ONE (06:00)
[2020-09-26] MEDS ORDERED: ASPIRIN 325 MG TAB PO ONE (06:00)
[2020-09-26] MEDS: SODIUM CHLORIDE 0.9% 1,000 ML IV SCH ×2 (06:41→16:59)
[2020-09-26] MEDS ORDERED: HEPARIN SODIUM,PORCINE 10,000 UNIT in SODIUM CHLORIDE 0.9% 1,000 ML IRRIGATION PRN (07:00)
[2020-09-26] MEDS ORDERED: HEPARIN SODIUM,PORCINE 2,500 UNIT in SODIUM CHLORIDE 0.9% 250 ML IRRIGATION PRN (07:00)
[2020-09-26] MEDS: METOPROLOL TARTRATE 12.5 MG TAB PO SCH ×2 (08:01→20:47)
[2020-09-26] MEDS: SENNOSIDES-DOCUSATE SODIUM 1 EACH TAB PO SCH ×2 (08:01→20:46)
[2020-09-26] MEDS: TICAGRELOR 90 MG TAB PO SCH ×2 (08:01→20:46)
[2020-09-26] MEDS: POTASSIUM CHLORIDE ER 20 MEQ TAB.ER PO SCH ×3 (08:03→20:47)
[2020-09-26] MEDS ORDERED: LIDOCAINE 1% INJ 10MG/ML (20 ML MDV) SQ ONE (08:52)
[2020-09-26] MEDS: MIDAZOLAM 2 MG/2 ML VIAL IVP ONE ×2 (08:52→09:11)
[2020-09-26] MEDS ORDERED: IV FLUID CONTINUATION 1,000 ML IV ONE (08:55)
[2020-09-26] MEDS ORDERED: BIVALIRUDIN 250 MG in SODIUM CHLORIDE 0.9% 50 ML IV ONE ×2 (09:00→09:30)
[2020-09-26] MEDS ORDERED: BIVALIRUDIN BOLUS 250 MG/50 ML IV ONE (09:00)
[2020-09-26] MEDS ORDERED: NITROGLYCERIN 1000MCG/10ML SYRINGE INTRACORON ONE (09:33)
[2020-09-26] MEDS ORDERED: NITROGLYCERIN SL TABS 0.4 MG TAB SUBLINGUAL PRN (09:46)
[2020-09-26] MEDS ORDERED: MAG HYDROX/AL HYDROX/SIMETH 30 ML CUP PO PRN (09:46)
[2020-09-26] MEDS ORDERED: RX INFO: IV CONTRAST WAS GIVEN 1 EACH MISC MISCELLANE PRN (09:46)
[2020-09-26] MEDS ORDERED: ZOLPIDEM 5 MG TAB PO PRN (09:46)
[2020-09-26] MEDS ORDERED: ATROPINE SULFATE 0.1 MG/ML 10ML SYRINGE IV PRN (09:46)
[2020-09-26] MEDS ORDERED: SODIUM CHLORIDE 0.9% 1,000 ML IV SCH (10:00)
--- NOTE | 2020-09-26 10:42 | PTCA ---
PERCUTANEOUSTRANS CORORONARY ANGIOGRAPHY DATE OF SERVICE: September 26, 2020 PERFORMING PHYSICIAN: Cecilio Tang MD. PROCEDURE PERFORMED: 1. Successful stenting of the proximal left circumflex coronary artery using 3.5 x 12 mm Xience drug-eluting stent with an excellent angiographic results. 2. Selective right coronary artery angiogram. 3. Selective right common femoral artery angiogram. INDICATION: This is a very pleasant, 69-year-old gentleman with coronary artery disease as well as hypertension and dyslipidemia who was admitted to the hospital with acute coronary syndrome. He underwent a heart catheterization and stenting of the RCA a few days ago and he was brought today to undergo an intervention on the left circumflex. APPROACH: Right common femoral artery. COMPLICATION: None. LEVEL OF SEDATION: Moderate with sedation length of 50 minutes. PROCEDURE DESCRIPTION: After obtaining an informed consent, the patient was brought to the cardiac medical lab director. The right common femoral artery was cannulated using micropuncture technique and a micropuncture wire passed easily then I placed a 6-Greek sheath at the right common femoral artery. I did start anticoagulation with Angiomax. Subsequently, I did engage the left main using an XB3.5 LAD guide. After that I did wire the left circumflex using a Whisper wire. That was performed with adjunctive use of SuperCross catheter because the left circumflex was extremely tortuous with angulated takeoff. Balloon angioplasty initially was performed using 2.5 x 12 and then 3.5 x 12 mm balloon before I deployed 3.5 x 12 mm Xience drug-eluting stent. The stent was positioned under fluoroscopy guidance and deployed under 16 atmospheres for 20 seconds. The following angiogram showed good angiographic results and the procedure was completed without any complication. After that, I did selective right common femoral artery angiogram. The procedure was completed without any complication. POSTPROCEDURE MANAGEMENT: 1. Dual anti-platelet therapy. 2. Risk factor modifications. 3. Follow up with the patient. MMODL / IJN: [id number] /
[2020-09-26] MEDS ORDERED: SODIUM CHLORIDE 0.65% NASAL SPRAY 44 ML BTL NASAL PRN (11:26)
[2020-09-26] MEDS ORDERED: hydrALAZINE HCL 20 MG/ML 1 ML VIAL IVP STA (13:06)
[2020-09-26] MEDS ORDERED: amLODIPine 10 MG TAB PO SCH (13:15)
[2020-09-26 13:57] VITALS: BMI 40.8
[2020-09-26] MEDS: FUROSEMIDE 10 MG/ML 4 ML VIAL IV SCH ×2 (14:02→20:47)
[2020-09-26] MEDS: HEPARIN SOD,PORK IN 0.45% NACL 25,000 UNIT in 0.45% NACL 1 250ML.BAG IV SCH (14:02)
--- NOTE | 2020-09-26 18:38 | PN ---
PROGRESS NOTE DATE OF SERVICE: 09/24/2020 CHIEF COMPLAINT: Shortness of breath and congestive heart failure. HISTORY OF PRESENT ILLNESS: This gentleman is doing well. He has not had any chest pain. He went to the pathology laboratory aides teacher yesterday and apparently had two out of four occlusions stented. Plan is for him to go back today. He has had no chest pain, shortness of breath, etc. PHYSICAL EXAMINATION: His chest is clear. Cardiac exam is normal. Abdomen is soft, nontender. IMPRESSION: 1. Triple-vessel coronary artery disease. 2. Congestive heart failure. PLAN: Await second catheterization with stenting. MMODL / IJN: [id number] /
--- NOTE | 2020-09-26 18:45 | PN ---
PROGRESS NOTE DATE OF SERVICE: 09/25/2020 CHIEF COMPLAINT: Congestive heart failure and coronary artery disease. HISTORY OF PRESENT ILLNESS: This gentleman is doing well. He has not gone for his second stenting in the laboratory operations coordinator. He has had no pain, shortness of breath, etc. PHYSICAL EXAMINATION: Chest is quite clear. Cardiac exam is normal. Abdomen is soft, nontender. IMPRESSION: 1. Congestive heart failure. 2. Coronary artery disease. 3. Hypertension. PLAN: Await second stenting. MMODL / IJN: [id number] /
--- NOTE | 2020-09-26 18:53 | PN ---
PROGRESS NOTE DATE OF SERVICE: 09/26/2020 CHIEF COMPLAINT: Coronary artery disease and CHF. HISTORY OF PRESENT ILLNESS: This gentleman is on his way to the lab support service tech. PHYSICAL EXAMINATION: Chest is clear. Cardiac exam is normal. Abdomen is soft, nontender. IMPRESSION: 1. Coronary artery disease. 2. Congestive heart failure. PLAN: Second stenting today. MMODL / IJN: [id number] /
[2020-09-27] MEDS: SODIUM CHLORIDE 0.9% 1,000 ML IV SCH (03:52)
[2020-09-27 08:12] LABS: African American GFR (CKD) >90 (>60 ml/min/1.73 sqM); Anion Gap 3 mmol/L; Blood Urea Nitrogen 19 mg/dL (9-20); Calcium 8.3 mg/dL (8.4-10.2); Carbon Dioxide 32 mmol/L (22-30); Chloride 104 mmol/L (98-107); Glucose 121 mg/dL (74-99); Non-African American GFR(CKD) >90 (>60 ml/min/1.73 sqM); Potassium 4.3 mmol/L (3.5-5.1); Sodium 139 mmol/L (137-145)
[2020-09-27] MEDS ORDERED: lisinopriL 5 MG TAB PO SCH (09:00)
[2020-09-27] MEDS ORDERED: amLODIPine 10 MG TAB PO SCH (09:00)
[2020-09-27 09:43] VITALS: TEMP 97.9
[2020-09-27] MEDS: TICAGRELOR 90 MG TAB PO SCH (09:44)
[2020-09-27] MEDS: POTASSIUM CHLORIDE ER 20 MEQ TAB.ER PO SCH (09:44)
[2020-09-27] MEDS: ASPIRIN 81 MG PO SCH (09:44)
[2020-09-27] MEDS: METOPROLOL TARTRATE 12.5 MG TAB PO SCH (09:44)
[2020-09-27] MEDS: ATORVASTATIN 40 MG TAB PO SCH (09:44)
[2020-09-27] MEDS: SENNOSIDES-DOCUSATE SODIUM 1 EACH TAB PO SCH (09:45)
[2020-09-27] MEDS: FUROSEMIDE 10 MG/ML 4 ML VIAL IV SCH (09:45)
[2020-09-27 12:40] VITALS: BP 119/74; PULSE 68; RESP 15
--- NOTE | 2020-09-27 16:02 | P.PN ---
Subjective This is a pleasant 69-year-old male past medical history significant for hypterension, dyslipidemia, valvular heart disease, abdominal aortic aneurysm s/p repair. He follows in the office with Dr. Tang. We have been asked to see in consultation for elevated troponin. Patient presents to the emergency department from home for low O2 saturations. Patient is status post total knee replacement on the right on Saturday by Dr. Almeida. He had the home physical therapy come to his house yesterday to start PT. They found his pulse ox to be in the 60s. They did call and notify Dr. Menendez who recommended that he come into the emergency room in for evaluation. Patient states he has been having exertional shortness of breath, feels as if he needs to sit down and catch his breath. He denies chest pain, palpitations, any chest discomfort, symptoms of orthopnea or PND, dizziness, lightheadedness or symptoms of syncope. He is a non-diabetic, he does not smoke, denies alcohol use. Denies family history of cardiac disease. Denies history of [place], stroke. Echocardiogram revealed an EF of 40-45%, with LV hypokinetic, mild , mild AR, moderate mitral reguritation Patient underwent cardiac catheterization on 09/23/20 with successful PCI mid RCA Patient underwent cardiac catheterization with Dr. Tang on 09/26/2020 successful stenting of the proximal left circumflex Patient seen and examined at bedside, no acute distress. Blood pressure 119/74, heart rate 68, maintaining oxygen saturation is on room air GENERAL: Well-appearing, well-nourished and in no acute distress. NECK: Supple without JVD or thyromegaly. LUNGS: Breath sounds clear to auscultation bilaterally. Respiration equal and unlabored. No wheezes, rales or rhonchi. HEART: Regular rate and rhythm without murmurs, rubs or gallops. S1 and S2 heard. EXTREMITIES: Normal range of motion, R knee with bandage 2+ swelling No clubbing or cyanosis. Peripheral pulses intact. ASSESSMENT NSTEMI s/p PCI to mid RCA and proximal left circumflex Hypertension Dyslipidemia Moderate mitral regurgitation PLAN Dual anti-platelet therapy Continue home cardiac medications From cardiology perspective, patient is stable to be discharged home. Patient also Dr. Tang in one week Nurse Practitioner note has been reviewed, I agree with a documented findings and plan of care. Patient was seen and examined. Objective - Vital Signs Vital signs: Vital Signs Temp 97.9 F 09/27/20 09:42 Pulse 68 09/27/20 12:36 Resp 15 09/27/20 12:36 BP 119/74 09/27/20 12:36 Pulse Ox 98 09/27/20 12:36 Intake & Output 09/26/20 09/27/20 09/27/20 18:59 06:59 18:59 Intake Total 270 480 Output Total 2425 400 1075 Balance -2155 -400 -595 Weight 129 kg 126.8 kg Intake: IV 30 Oral 240 480 Output: Urine 2425 400 1075 Uretheral ([place]) 650 300 Other: Voiding Method Toilet Indwelling Catheter Indwelling Catheter Urinal - Labs CBC & Chem 7: 09/25/20 07:24 09/27/20 06:52 Labs: Abnormal Lab Results - Last 24 Hours (Table) 09/27/20 Range/Units 06:52 Carbon Dioxide 32 H (22-30) mmol/L Glucose 121 H (74-99) mg/dL Calcium 8.3 L (8.4-10.2) mg/dL
--- NOTE | 2020-09-27 20:26 | DS ---
DISCHARGE SUMMARY CHIEF COMPLAINT: Shortness of breath and hypoxia. HISTORY OF PRESENT ILLNESS AND PHYSICAL EXAMINATION: Details of this man's history and physical can be found in the initial workup. LABORATORY STUDIES: While he was in the hospital he had laboratory studies, details of which can be found in the laboratory section of his chart. COURSE IN THE HOSPITAL: After admission he was placed on bedrest, started on intravenous fluids, and he had serial EKGs and enzymes. Troponins were elevated. BNP was also. He was seen by Cardiology and taken to the car barn laborer, where he was found to have triple-vessel coronary artery disease. At first sitting, 2 stents were placed, and at the second trip to the car barn laborer another was placed in the circumflex. He did well postoperatively and it was felt that he could be discharged on 09/27/2020. He will go home on light activity about the house and he will follow up with Cardiology at their request. We will contact him as soon as he gets home to ensure that things go smoothly. FINAL DIAGNOSES: 1. Acute congestive heart failure. 2. Triple-vessel coronary artery disease. 3. Acute dri-OV-mvtyuth-elevation myocardial infarction. 4. History of hypertension. 5. Recent knee replacement. OPERATIONS: Cardiac cath and stenting, two different sittings. CONSULTATION: Cardiology. He is improved. MMODL / IJN: [id number] /
--- NOTE | 2020-09-30 13:08 | CDI ---
Your patient has the documented diagnosis of acute congestive heart failure noted in the discharge summary. Additional information regarding the type of CHF is requested. History/Risk Factors: Pt has a h/o CHF, presented with NSTEMI. Pt underwent cardiac cath on 09/26 where 3-vessel coronary artery disease was noted and pt underwent PTCA x 2. Clinical Indicators: 69yo presented with low SaO2 at home in the 60s. . H/O CHF, HTN, BNP 09/22: 6170 Trop 09/22: 2.1 Echocardiogram Results 09/23: mild LVH, overall LVSF is mild-mod impaired w/ EF 40-45%, basal wall, basal inferoseptal LV wall, mid inferior LV wall, mid inferseptal LV wall, apical inferior LV wall motion is hypokinetic, mild pHTN Chest X Ray 09/22: suspect mild interstitial phase pulmonary edema Treatment: Lopressor po, Lisinopril 2.5 mg po daily, Lasix 40mg IV q12 hours, Lipitor 40mg daily, 2L NC supplemental O2 In your professional opinion, can you please clarify the [acuity and type] of CHF if known? [ ] Acute Systolic Heart Failure (reduced EF) [ ] Chronic Systolic Heart Failure (reduced EF) [ ] Acute on Chronic Systolic Heart Failure (reduced EF) [ ] Acute Diastolic Heart Failure (preserved EF) [ ] Chronic Diastolic Heart Failure (preserved EF) [ ] Acute on Chronic Diastolic Heart Failure (preserved EF) [ ] Acute Systolic & Diastolic Heart Failure [ ] Chronic Systolic & Diastolic Heart Failure [ ] Acute on Chronic Heart Failure Systolic & Diastolic Heart Failure [ ] Other, please specify MTDD
--- NOTE | 2020-10-01 12:30 | MISC ---
MISCELLANOUS REPORT Acute systolic heart failure. MMODL / IJN: [id number] /
== END 2020-09-27 17:15 | disposition home or self-care (01) | DRG 246 ==
LOC: EC 17:07 → 3SCARD 20:16
PROVIDERS: ADMIT Family Medicine; ATTEND Family Medicine
PROC: B2111ZZ Fluoroscopy of Multiple Coronary Arteries using Low Osmolar Contrast (ICD-10-PCS; 2020-09-23)
PROC: 4A023N7 Measurement of Cardiac Sampling and Pressure, Left Heart, Percutaneous Approach (ICD-10-PCS; 2020-09-23)
PROC: B2111ZZ Fluoroscopy of Multiple Coronary Arteries using Low Osmolar Contrast (ICD-10-PCS; 2020-09-23)
PROC: 027034Z Dilation of Coronary Artery, One Artery with Drug-eluting Intraluminal Device, Percutaneous Approach (ICD-10-PCS; principal; 2020-09-23 11:20)
PROC: 027034Z Dilation of Coronary Artery, One Artery with Drug-eluting Intraluminal Device, Percutaneous Approach (ICD-10-PCS; 2020-09-26)
PROC: B41F1ZZ Fluoroscopy of Right Lower Extremity Arteries using Low Osmolar Contrast (ICD-10-PCS; 2020-09-26)
DX: I21.4 Non-ST elevation (NSTEMI) myocardial infarction (principal); I50.21 Acute systolic (congestive) heart failure; Z68.41 Body mass index [BMI] 40.0-44.9, adult; E11.9 Type 2 diabetes mellitus without complications; E78.5 Hyperlipidemia, unspecified; I08.0 Rheumatic disorders of both mitral and aortic valves; I11.0 Hypertensive heart disease with heart failure; I25.10 Atherosclerotic heart disease of native coronary artery without angina pectoris; I50.9 Heart failure, unspecified; R09.02 Hypoxemia; Z20.822 Contact with and (suspected) exposure to COVID-19; Z79.82 Long term (current) use of aspirin; Z96.651 Presence of right artificial knee joint; E66.01 Morbid (severe) obesity due to excess calories
CPT/HCPCS: 36415; 71045; 71275; 80048; 80053; 83605; 83735; 83880; 84484; 85025; 85379; 85610; 85730; 87636; 93005; 93306; 93458; 99291

== ENCOUNTER 2020-11-04 07:57 | Day surgery (SDC) | payer MEDICARE ==
[~2020-11-04 07:57] MED LIST changes: -ACETAMINOPHEN TAB 500 MG TAB PO PRN; +ALPRAZolam 0.25 MG TAB PO PRN; +ALPRAZolam 0.5 MG TAB PO PRN; +ASPIRIN 325 MG TAB PO STA; +ATORVASTATIN 80 MG TAB PO STA; -HYDROmorphone 0.5 MG/0.5 ML SYRINGE IVP PRN; -LIDOCAINE 1% (10MG/ML) FOR IV START INTRADERMA PRN; -MELOXICAM 7.5 MG TAB PO PRN; +NITROGLYCERIN SL TABS 0.4 MG TAB SUBLINGUAL PRN; -ONDANSETRON 4 MG/2 ML VIAL IVP PRN; +SODIUM CHLORIDE 0.9% 1,000 ML in EMPTY BAG 1 BAG IV ONE; -TRANEXAMIC ACID 1,000 MG in SODIUM CHLORIDE 0.9% 100 ML IVPB PRN; -ceFAZolin 3 GM in SODIUM CHLORIDE 0.9% 100 ML IVPB PRN
[2020-11-04] MEDS ORDERED: SODIUM CHLORIDE 0.9% 1,000 ML IV ONE (08:09)
[2020-11-04] MEDS ORDERED: LIDOCAINE 1% INJ 10MG/ML (20 ML MDV) ONE (09:09)
[2020-11-04] MEDS ORDERED: fentaNYL (PF) 50 MCG/ML 2 ML AMP ONE (09:10)
[2020-11-04] MEDS ORDERED: MIDAZOLAM 2 MG/2 ML VIAL IV ONE (09:28)
[2020-11-04] MEDS ORDERED: fentaNYL (PF) 50 MCG/ML 2 ML AMP IV ONE (09:28)
[2020-11-04] MEDS ORDERED: LIDOCAINE 1% INJ 10MG/ML (20 ML MDV) SQ ONE (09:33)
[2020-11-04] MEDS ORDERED: BIVALIRUDIN 250 MG in SODIUM CHLORIDE 0.9% 50 ML IV ONE (09:40)
[2020-11-04] MEDS ORDERED: BIVALIRUDIN BOLUS 250 MG/50 ML IV ONE (09:41)
[2020-11-04] MEDS ORDERED: NITROGLYCERIN 1000MCG/10ML SYRINGE INTRACORON ONE (09:51)
[2020-11-04] MEDS ORDERED: IOPAMIDOL-370 125ML BTL INJ ONE (09:58)
[2020-11-04] MEDS ORDERED: CLOPIDOGREL 75 MG TAB PO ONE (09:59)
[2020-11-04] MEDS ORDERED: CLOPIDOGREL 75 MG TAB ONE (09:59)
[2020-11-04] MEDS ORDERED: ZOLPIDEM 5 MG TAB PO PRN (10:08)
[2020-11-04] MEDS ORDERED: RX INFO: IV CONTRAST WAS GIVEN 1 EACH MISC MISCELLANE PRN (10:08)
[2020-11-04] MEDS ORDERED: NITROGLYCERIN SL TABS 0.4 MG TAB SUBLINGUAL PRN (10:08)
[2020-11-04] MEDS ORDERED: ATROPINE SULFATE 0.1 MG/ML 10ML SYRINGE IV PRN (10:08)
[2020-11-04] MEDS ORDERED: MAG HYDROX/AL HYDROX/SIMETH 30 ML CUP PO PRN (10:08)
[2020-11-04] MEDS ORDERED: SODIUM CHLORIDE 0.9% 1,000 ML IV SCH (10:15)
--- NOTE | 2020-11-04 11:08 | CC ---
CARDIAC CATHETERIZATION REPORT DATE OF SERVICE: November 04, 2020 PERFORMING PHYSICIAN: Cecilio Tang MD. PROCEDURE PERFORMED: 1. Selective right and left coronary angiogram. 2. Left heart catheterization. 3. Successful stenting of the diagonal branch of the LAD using 3.0 x 15 mm Xience drug- eluting stent with an excellent angiographic results. INDICATION: This is a 69-year-old gentleman with coronary artery disease and prior stenting of the RCA who continues to have chest discomfort with exertion concerning for angina. He is known to have intermediate lesion in the LAD and severe lesion involving a large diagonal branch. Because of that, he was brought today to undergo an intervention of the diagonal. APPROACH: Right common femoral artery. COMPLICATION: None. LEVEL OF SEDATION: Moderate with sedation length of 30 minutes. PROCEDURE DESCRIPTION: After obtaining an informed consent, the patient was brought to the cardiac laborer airport maintenance. The right common femoral artery was cannulated using micropuncture technique, the micropuncture wire passed easily. Then I placed a 6-Urdu sheath at the right common femoral artery. Selective right and left coronary angiogram performed using JR4 for the right coronary artery. An XB 35 guide for the left coronary system. After that, I did left heart catheterization using the JR4 which crossed the aortic valve. Then I did pullback across the valve. After that I did intervene on the diag. Please see a separate paragraph for that. SELECTIVE CORONARY ANGIOGRAM: 1. The RCA is a large caliber vessel. It is a dominant vessel. The RCA stent is patent. Otherwise, there is no high-grade stenosis was identified in the right coronary artery. 2. The left main is angiographically normal. It bifurcates into LCX and LAD. 3. The LCX is a large caliber vessel. It is a nondominant vessel and seems to be angiographically normal. 4. The LAD is a large caliber vessel. The proximal LAD appeared to be angiographically normal and gives rise into a large diagonal branch which has a tight lesion appeared to be in the range of 70% to 80%. The mid LAD has intermediate lesion appeared to be in the range of 50%. The LAD distally appeared to be angiographically normal. HEMODYNAMICS: The LVEDP was about 10 to 12 mmHg without significant gradient across aortic valve. PCI OF THE DIAG: Anticoagulation was initiated using Angiomax. Subsequently I did engage the left main using a an XB35 LAD guide. I did wire the diag using a run-through wire. Predilatation was performed using 2.75 x 12 mm balloon before I deployed 3.0 x 15 mm Xience drug-eluting stent where the stent was positioned under fluoroscopy guidance and deployed under 14 atmospheres for 20 seconds with the following angiogram showing excellent angiographic results and the procedure was completed without any complication. CONCLUSION: 1. Patent stent in the RCA. 2. Intermediate lesion involving the mid LAD appeared to be in the range of 50%. Seems to be unchanged compared to before. 3. Severe disease involving the first diagonal branch of the LAD. I performed successful stenting of the first diagonal with an excellent angiographic results. POSTPROCEDURE MANAGEMENT: 1. Dual anti-platelet therapy. 2. Risk factor modifications. 3. Follow up with the patient. MMODL / IJN: [id number] /
[2020-11-04] MEDS ORDERED: ERGOCALCIFEROL 1,250 MCG (50,000 IU) CAPSULE PO SCH (14:00)
[2020-11-04 14:35] VITALS: BMI 39.8
[2020-11-04] MEDS: ACETAMINOPHEN TAB 325 MG TAB PO SCH ×3 (15:02→19:59)
[2020-11-04 19:37] LABS: African American GFR (CKD) >90 (>60 ml/min/1.73 sqM); Anion Gap 6 mmol/L; Blood Urea Nitrogen 18 mg/dL (9-20); Calcium 9.2 mg/dL (8.4-10.2); Carbon Dioxide 31 mmol/L (22-30); Chloride 106 mmol/L (98-107); Glucose 143 mg/dL (74-99); Magnesium 2.2 mg/dL (1.6-2.3); Non-African American GFR(CKD) >90 (>60 ml/min/1.73 sqM); Potassium 4.1 mmol/L (3.5-5.1); Sodium 143 mmol/L (137-145)
[2020-11-04] MEDS ORDERED: ATORVASTATIN 80 MG TAB PO SCH (21:00)
[2020-11-04] MEDS ORDERED: LOSARTAN 25 MG TAB PO SCH (21:00)
[2020-11-05] MEDS: ACETAMINOPHEN TAB 325 MG TAB PO SCH ×3 (04:26→09:09)
[2020-11-05 08:15] LABS: African American GFR (CKD) >90 (>60 ml/min/1.73 sqM); Anion Gap 6 mmol/L; Blood Urea Nitrogen 18 mg/dL (9-20); Calcium 8.6 mg/dL (8.4-10.2); Carbon Dioxide 27 mmol/L (22-30); Chloride 107 mmol/L (98-107); Glucose 151 mg/dL (74-99); Non-African American GFR(CKD) >90 (>60 ml/min/1.73 sqM); Potassium 4.5 mmol/L (3.5-5.1); Sodium 140 mmol/L (137-145)
[2020-11-05 08:17] VITALS: BP 141/82; PULSE 71; RESP 16; TEMP 98.1
[2020-11-05 08:24] LABS: Basophils % (A) 1 %; Eosinophils # (A) 0.2 k/uL (0-0.7); Eosinophils % (A) 4 %; HCT 42.3 % (39.0-53.0); HGB 14.4 gm/dL (13.0-17.5); Lymphocytes % (A) 19 %; MCH 30.2 pg (25.0-35.0); MCHC 34.1 g/dL (31.0-37.0); MCV 88.4 fL (80.0-100.0); Monocytes # (A) 0.4 k/uL (0-1.0); Monocytes % (A) 7 %; Neutrophils # (A) 3.6 k/uL (1.3-7.7); Neutrophils % (A) 67 %; Platelet Count 164 k/uL (150-450); RBC 4.79 m/uL (4.30-5.90); RDW 14.2 % (11.5-15.5); WBC 5.3 k/uL (3.8-10.6)
[2020-11-05] MEDS ORDERED: CLOPIDOGREL 75 MG TAB PO SCH (09:00)
[2020-11-05] MEDS ORDERED: METOPROLOL SUCCINATE (ER) 25 MG TAB.ER.24H PO SCH (09:00)
[2020-11-05] MEDS ORDERED: ASPIRIN 81 MG PO SCH (09:00)
[2020-11-05] MEDS ORDERED: FUROSEMIDE 20 MG TAB PO SCH (09:00)
[2020-11-05] MEDS ORDERED: minoxidiL 2.5 MG TAB PO SCH (09:00)
[2020-11-05] MEDS ORDERED: amLODIPine 10 MG TAB PO SCH (09:00)
--- NOTE | 2020-11-05 11:39 | P.DS ---
Providers Expected date of discharge: 11/05/20 Attending physician: Cecilio Tang Consults: 11/04/20 10:08 Consult Physician Routine Consulting Provider: [facility] Consult Reason/Comments: Post Interventional patient Do you want consulting provider notified?: Already Contacted Primary care physician: Martir Menendez [facility] Course: This is a 69-year-old male, patient of Dr. Juarez, who underwent cardiac catheterization on 11/04/2020 with stenting of the diagonal branch of LAD. Patient has a known history of coronary artery disease and has prior stenting to RCA. Patient is doing well postoperatively. He denies chest pain or pressure. He denies shortness of breath. His vital signs have been stable. He was deemed stable for discharge home today. He is to follow up on an outpatient basis. Please see EMR for further hospital course details. Discharge diagnosis Coronary artery disease with previous stenting of the RCA, status post PCI to the diagonal branch of LAD Nurse practitioner note has been reviewed by physician. Signing provider agrees with the documented findings, assessment, and plan of care. Plan - Discharge Summary Discharge Rx Participant: No New Discharge Prescriptions: Continue amLODIPine BESYLATE [Norvasc] 10 mg PO DAILY Furosemide [Lasix] 20 mg PO DAILY minoxidiL [Minoxidil] 2.5 mg PO DAILY Aspirin [Adult Low Dose Aspirin EC] 81 mg PO DAILY HYDROcodone/APAP 7.5-325MG [[place] 7.5-325] 1 - 2 tab PO Q6HR PRN #42 tab PRN Reason: Pain Losartan [Cozaar] 25 mg PO HS Clopidogrel [Plavix] 75 mg PO DAILY Metoprolol Succinate (ER) [Toprol XL] 25 mg PO DAILY Ergocalciferol (Vitamin D2) [Vitamin D2 (50,000 Iu)] 2,500 mcg PO Q30D Atorvastatin [Lipitor] 80 mg PO HS Acetaminophen [Tylenol] 325 mg PO Q4H Discharge Medication List amLODIPine BESYLATE [Norvasc] 10 mg PO DAILY 11/20/17 [History] Aspirin [Adult Low Dose Aspirin EC] 81 mg PO DAILY 06/15/19 [History] Furosemide [Lasix] 20 mg PO DAILY 06/15/19 [History] minoxidiL [Minoxidil] 2.5 mg PO DAILY 06/15/19 [History] Ergocalciferol (Vitamin D2) [Vitamin D2 (50,000 Iu)] 2,500 mcg PO Q30D 09/13/20 [History] Metoprolol Succinate (ER) [Toprol XL] 25 mg PO DAILY 09/13/20 [History] HYDROcodone/APAP 7.5-325MG [[place] 7.5-325] 1 - 2 tab PO Q6HR PRN #42 tab 09/19/20 [Rx] Atorvastatin [Lipitor] 80 mg PO HS 11/02/20 [History] Clopidogrel [Plavix] 75 mg PO DAILY 11/02/20 [History] Losartan [Cozaar] 25 mg PO HS 11/02/20 [History] Acetaminophen [Tylenol] 325 mg PO Q4H 11/04/20 [History] Follow up Appointment(s)/Referral(s): Rehab Renetta SCHUMACHER,Cardiac [NON-STAFF] - 1 Week Cecilio Tang MD [STAFF PHYSICIAN] - 11/14/20 1:15 pm Patient Instructions/Handouts: *Surgery [facility] - After Heart Catheterization - [facility] Instructions, Left Heart Catheterization (DC), Procedural Sedation (ED) Activity/Diet/Wound Care/Special Instructions: No bending/flexing/pushing/pulling/lifting greater than 5 pounds x5 days No submersion of right groin in pools/hot tubs/bath tubs x3 days No driving x3 days Fall risk/safety precautions Follow up Encourage fluids x2 days No changes with medications
[2020-11-24] MEDS ORDERED: ERGOCALCIFEROL 1,250 MCG (50,000 IU) CAPSULE PO SCH (09:00)
== END 2020-11-05 13:10 | disposition home or self-care (01) ==
LOC: CATHCVL 07:57 → 3SCARD 09:58 → CATHCVL 11-05 13:10
PROVIDERS: ATTEND Internal Medicine Interventional Cardiology
DX: I25.110 Atherosclerotic heart disease of native coronary artery with unstable angina pectoris (principal); I10 Essential (primary) hypertension; I38 Endocarditis, valve unspecified; I25.5 Ischemic cardiomyopathy; E78.5 Hyperlipidemia, unspecified; Z20.822 Contact with and (suspected) exposure to COVID-19; Z87.891 Personal history of nicotine dependence; E66.9 Obesity, unspecified; Z95.5 Presence of coronary angioplasty implant and graft; Z68.39 Body mass index [BMI] 39.0-39.9, adult; Z79.02 Long term (current) use of antithrombotics/antiplatelets; Z79.82 Long term (current) use of aspirin; Z79.899 Other long term (current) drug therapy
CPT/HCPCS: 93458; 80048 ×2; 83735; 85025; 87635; C9600; C1894 ×2; C1725 ×2; C1887; C1769 ×3; C1874; S0139; J2250; J2001; J3010; J0583; Q9967

== ENCOUNTER → 2021-10-19 | Day surgery (SDC) | payer MEDICARE ==
[2021-10-18 13:11] VITALS: BMI 39.0
[~2021-10-19] MED LIST changes: -ALPRAZolam 0.25 MG TAB PO PRN; -ALPRAZolam 0.5 MG TAB PO PRN; -ASPIRIN 325 MG TAB PO STA; -ATORVASTATIN 80 MG TAB PO STA; +LACTATED RINGERS 1,000 ML IV SCH; +LIDOCAINE 2% INJ 20 MG/ML (2 ML VIAL) ONE; -NITROGLYCERIN SL TABS 0.4 MG TAB SUBLINGUAL PRN; +PROPOFOL 10 MG/ML 20 ML VIAL IV ONE; -SODIUM CHLORIDE 0.9% 1,000 ML in EMPTY BAG 1 BAG IV ONE
--- NOTE | 2021-10-19 14:44 | P.PCN ---
Date of Procedure: 10/19/21 Procedure(s) Performed: BRIEF HISTORY: Patient is a -70year-old, pleasant, white male scheduled for an upper endoscopy as a part of evaluation of progressive dysphagia to solids for the last 3-4 weeks duration. He feels food gets hung up in his lower sternal area. Denies any heartburn. Reports no odynophagia. PROCEDURE PERFORMED: Esophagogastroduodenoscopy with biopsy . PREOPERATIVE DIAGNOSIS: progressive dysphagia to solids of 3-4 weeks duration IV sedation per anesthesia. PROCEDURE: After informed consent was obtained, the patient was brought into the endoscopy unit. IV sedation was administered by Anesthesia under continuous monitoring. Initially the Olympus GIF-140 video endoscope was inserted into the mouth. Esophagus intubated without any difficulty. It was gradually advanced into the stomach and duodenum and carefully examined. The bulb and the second part of the duodenum appeared normal. The scope at this time was withdrawn to the stomach, adequately insufflated with air, and upon careful examination, mucosa of the antrum, body, fundus appeared normal. There was a 3 cm friable polypoid mass involving the cardia of the stomach and multiple biopsies were done from this area. There was a moderate to large size hiatal hernia noted. The scope was then withdrawn into the esophagus. The GE junction was located at 35 cm from the incisors. There was a distal esophageal mass identified extending from 33-35 cm from the incisors which appears to be extending into the cardia of the stomach. Multiple biopsies were done from the distal esophageal mass. The rest of the esophagus appeared normal. There were no erosions or ulcerations seen and the patient tolerated the procedure well. IMPRESSION: 1. Distal esophageal mass at 33-35 cm from the incisors, extending into the cardia of the stomach status post multiple biopsies. 2. 3 cm friable polypoid mass involving the cardia of the stomach status post multiple biopsies. 3. Moderate to large size hiatal hernia RECOMMENDATIONS: The findings of this examination were discussed with the patient as well as his family. He was advised to follow with the biopsy results and he'll be seen in office in one week.
== END ==
LOC: ORWHC2ENDO 10:43
PROVIDERS: ATTEND Internal Medicine Gastroenterology
DX: C15.9 Malignant neoplasm of esophagus, unspecified (principal); C16.0 Malignant neoplasm of cardia; K44.9 Diaphragmatic hernia without obstruction or gangrene; Z79.899 Other long term (current) drug therapy
CPT/HCPCS: 88305; 88342; 43239; J2704; J2001

== ENCOUNTER 2022-04-17 18:16 | Emergency (ER) | payer MEDICARE ==
--- NOTE | 2022-04-17 19:28 | ED ---
General Adult HPI - General Chief complaint: Skin/Abscess/Foreign Body Stated complaint: Feeding Tube Leaking Time Seen by Provider: 04/17/22 19:04 Source: patient Mode of arrival: wheelchair Limitations: no limitations - History of Present Illness Initial comments: This is a pleasant 25-year-old female presents to emergency parent complaining of with her left great toenail. This usually goes she had to have the toenail removed after became infected. She states for the past few days she is sustain some trauma to the nail itself. She states she struck it 2 days ago nearly avulsed it. She hit it again today and the toenail is loose. It is causing a lot of pain when she irritates the area. She has developed some redness to the eponychial area. No fever or chills. No lymphangitis. Remainder of foot is unremarkable. Sensation intact. No headache, no fever or chills, no changes in vision or hearing, no sore throat or difficulty with speech, no neck pain, no chest pain or shortness of breath, no abdominal pain, no nausea or vomiting, no changes in urination or bowel movements, no numbness or tingling, no history of immunosuppression or diabetes. No history of MRSA., no skin rashes or lesions. Past medical, surgical, social, and family history reviewed. - Related Data Home Medications Medication Instructions Recorded Confirmed amLODIPine BESYLATE [Norvasc] 10 mg PO DAILY 11/20/17 10/18/21 Aspirin [Adult Low Dose Aspirin EC] 81 mg PO DAILY 06/15/19 10/18/21 Furosemide [Lasix] 20 mg PO DAILY 06/15/19 10/18/21 minoxidiL 2.5 mg PO DAILY 06/15/19 10/18/21 Ergocalciferol (Vitamin D2) 2,500 mcg PO Q30D 09/13/20 10/18/21 [Vitamin D2 (50,000 Iu)] Metoprolol Succinate (ER) [Toprol 25 mg PO DAILY 09/13/20 10/18/21 XL] Atorvastatin [Lipitor] 80 mg PO HS 11/02/20 10/18/21 Losartan [Cozaar] 25 mg PO HS 11/02/20 10/18/21 Previous Rx's Medication Instructions Recorded Albuterol Inhaler [Ventolin Hfa 2 puff INHALATION Q4HR PRN #1 each 04/17/22 Inhaler] Allergies Allergy/AdvReac Type Severity Reaction Status Date / Time latex Allergy Rash/Hives Verified 04/17/22 18:26 Review of Systems ROS Statement: Those systems with pertinent positive or pertinent negative responses have been documented in the HPI. ROS Other: All systems not noted in ROS Statement are negative. Past Medical History Past Medical History: Cancer, GERD/Reflux, Hyperlipidemia, Hypertension, Osteoarthritis (OA) Additional Past Medical History / Comment(s): esophageal CA History of Any Multi-Drug Resistant Organisms: None Reported Past Surgical History: Heart Catheterization With Stent, Hernia Repair, Joint Replacement, Orthopedic Surgery, Tonsillectomy Additional Past Surgical History / Comment(s): rotator cuff Right x2, rt shoulder replacement, groin and abdomen hernias, benign growth on thyroid, AAA REPAIR, BILAT TKA, J/G tube, esophagus no longer connected to stomach Past Anesthesia/Blood Transfusion Reactions: No Reported Reaction Date of Last Stent Placement:: 11/04/2020 Past Psychological History: No Psychological Hx Reported Smoking Status: Never smoker Past Alcohol Use History: None Reported Past Drug Use History: None Reported - Past Family History Mother Family Medical History: No Reported History General Exam - General Exam Comments Initial Comments: Patient is tachycardic although he does not appear to be ill or toxic. Capillary refill less than 2 seconds. Adequate skin perfusion. Vital signs noted Limitations: no limitations General appearance: obese Head exam: Present: atraumatic, normocephalic, normal inspection Eye exam: Present: normal appearance, EOMI Neck exam: Present: normal inspection Respiratory exam: Present: normal lung sounds bilaterally. Absent: respiratory distress, wheezes, rales, rhonchi, stridor Cardiovascular Exam: Present: regular rate, normal rhythm, normal heart sounds. Absent: systolic murmur, diastolic murmur, rubs, gallop, clicks GI/Abdominal exam: Present: soft, tenderness (Patient does have some tenderness near the area of the GJ tube. There is no surrounding erythema. Some dark discharge noted. No evidence of bleeding.), normal bowel sounds Extremities exam: Present: normal inspection Back exam: Present: normal inspection Neurological exam: Present: alert, CN II-XII intact (Grossly) Psychiatric exam: Present: normal affect, normal mood Skin exam: Present: warm, dry, intact, normal color. Absent: rash, cyanosis, diaphoretic, erythema, urticaria, vesicles, petechiae, pallor, mottled, abrasion Course Vital Signs 04/17/22 04/17/22 18:21 20:57 Temperature 98.1 F 97.6 F Pulse Rate 115 H Pulse Rate [ 100 Pulse Oximetery ] Respiratory 20 16 Rate Blood Pressure 115/70 Blood Pressure 110/74 [Right Arm] O2 Sat by Pulse 98 95 Oximetry - Reevaluation(s) Reevaluation #1: 04/17/22 21:16 Medical record is reviewed Feeding tube accessed and functioning properly. Patient is informed of results and questions answered Patient in no distress Medical Decision Making - Medical Decision Making We'll assess feeding tube dysfunction with plain film x-ray with contrast. Had a long discussion with the patient and his family. Patient does have some irritation of the feeding tube site. This is a new tract. There is some minimal erythema, likely from the tube itself. Does not appear to be consistent with secondary cellulitis. Patient does have minimal old blood draining from the site. However there is no purulent drainage. Feeding tube functioning properly. Offered further workup. However the patient is in no distress. To functioning properly. We will discharge the patient have follow-up with Dale Berrios. Family did ask for a prescription for a nebulizer compressor as they were prescribed albuterol bit were not prescribed a compressor for the nebulizer. I also prescribed albuterol inhaler. Patient was told to return to the ER for any signs or symptoms worsen. Told to return immediately if any other problems arise. All questions answered. Treatment plan discussed. Patient in agreement Every effort has been made to ensure accuracy of this dictation. However, due to the limitations of electronic medical records and dictation devices, errors in charting still occur. The case was discussed in detail with ED attending physician. Presentation, findings, treatment plan discussed in detail. Map Maker Dr. Noble - Radiology Data Radiology results: report reviewed, image reviewed Plain film x-rays interpreted by me reveal adequate placement of the gastrostomy tube. No evidence of malfunction. Agree with radiology interpretation Disposition Clinical Impression: Feeding tube dysfunction Disposition: HOME SELF-CARE Condition: Good Instructions (If sedation given, give patient instructions): Tube Feeding (DC) Additional Instructions: Follow-up with your specialist at [facility]. Follow-up with your regular physician as directed. Return to the ER immediately if any symptoms worsen, new symptoms arise, or any other problems develop. Prescriptions: Albuterol Inhaler [Ventolin Hfa Inhaler] 2 puff INHALATION Q4HR PRN #1 each PRN Reason: Wheezing Is patient prescribed a controlled substance at d/c from ED?: No Referrals: Martir Menendez MD [Primary Care Provider] - 1-2 days
--- NOTE | 2022-04-17 19:29 | XR ---
EXAMINATION TYPE: XR abdomen 1V DATE OF EXAM: 04/17/2022 COMPARISON: None HISTORY: Tube placed TECHNIQUE: Single view FINDINGS: Contrast was injected into the gastrostomy tube. There is contrast opacification of the sto mach and the proximal duodenum. No contrast extravasation. IMPRESSION: Gastrostomy tube is in good position in the body of the stomach.
--- NOTE | 2022-04-17 20:12 | XR ---
EXAMINATION TYPE: XR abdomen 1V DATE OF EXAM: 04/17/2022 COMPARISON: Today HISTORY: Check feeding tube TECHNIQUE: Single view FINDINGS: There is gastrostomy tube in the tip is advanced to the proximal jejunum there is contrast in the stomach and duodenum and jejunum. No extravasation. IMPRESSION: The tip of the feeding tube is in the proximal jejunum.
[2022-04-17 20:58] VITALS: BP 110/74; PULSE 100; RESP 16; TEMP 97.6
== END 2022-04-17 21:45 | disposition home or self-care (01) ==
LOC: EC 18:16
DX: K94.23 Gastrostomy malfunction (principal); K21.9 Gastro-esophageal reflux disease without esophagitis; I10 Essential (primary) hypertension; M19.90 Unspecified osteoarthritis, unspecified site; E78.5 Hyperlipidemia, unspecified; Z79.899 Other long term (current) drug therapy; Z91.040 Latex allergy status; Z79.82 Long term (current) use of aspirin
CPT/HCPCS: 74018; 99283; Q9967